=== PATIENT | male | born 1975 | race Caucasian/White ===

== ENCOUNTER 2017-10-23 03:57 | Emergency (ER) | payer SELFPAY ==
[2017-10-23] MEDS ORDERED: ASPIRIN 81 MG CHEWABLE TABLET ONE (04:23)
[2017-10-23] MEDS ORDERED: METOPROLOL TAR 50 MG TAB ONE (04:24)
[2017-10-23] MEDS ORDERED: ONDANSETRON 4 MG/2 ML VIAL ONE (04:25)
[2017-10-23] MEDS ORDERED: ENALAPRILAT 1.25 MG/ML VIAL IV ONE (04:25)
[2017-10-23] MEDS ORDERED: MORPHINE 4 MG/ML SYR ONE (04:25)
[2017-10-23 04:34] LABS: Absolute Lymphocytes (CBC) 1.7 K/uL (0.7-4.9); Absolute Monocytes 0.8 K/uL (0.1-1.3); Absolute Neutrophil 5.3 K/uL (1.8-8.0); Basophils % 0.7 % (0-1.3); Eosinophils % 1.2 % (0-4.4); Hematocrit 50.1 % (39.6-49.0); Lymphocytes % 21.6 % (15.3-44.8); MCH 31.2 pg (27.0-35.0); MCV 88.5 fL (80-100); MPV 8.1 fL (7.6-11.3); Monocytes % 10.1 % (3.3-12.3); RBC Red Blood Cell Count 5.66 M/uL (4.33-5.43)
[2017-10-23 04:43] LABS: Protime INR 0.95
[2017-10-23] MEDS ORDERED: KETOROLAC 30 MG/ML INJ ONE (05:14)
[2017-10-23 05:33] LABS: ALT/SGPT 46 U/L (12-78); AST/SGOT 46 U/L (15-37); Albumin 3.9 g/dL (3.4-5.0); Alkaline Phosphatase 42 U/L (45-117); BUN Blood Urea Nitrogen 7 mg/dL (7-18); Bicarbonate 28 mmol/L (21-32); Bilirubin Direct 0.1 mg/dL (0-0.2); Bilirubin Total 0.7 mg/dL (0.2-1.0); Glucose Level 94 mg/dL (74-106); Potassium 3.6 mmol/L (3.5-5.1); Sodium Level 140 mmol/L (136-145)
[2017-10-23 05:34] LABS: CKMB Creatine Kinase MB 3.8 ng/mL (0.3-3.6); Lipase 71 U/L (73-393); Magnesium 1.8 mg/dL (1.8-2.4); NT PRO-BNP 27 pg/mL (<125)
[2017-10-23 05:35] LABS: Alcohol Serum/Plasma 25 mg/dL (0-3)
[2017-10-23 05:36] LABS: Creatine Phosphokinase 1625 U/L (39-308)
[2017-10-23] MEDS ORDERED: NA CHLORIDE 0.9% 2,000 ML ONE (05:42)
--- NOTE | 2017-10-23 06:33 | EKG ---
Test Date: 2017-10-23 Test Time: 04:13:48 [employer] Of Sales Promotion: SANDY MEASUREMENT RESULTS: Intervals: Rate: 98 CA: 138 QRSD: 98 QT: 348 QTc: 444 [place]: P: 71 CA: 138 QRS: 66 T: 63 INTERPRETIVE STATEMENTS: Normal sinus rhythm Minimal voltage criteria for LVH, may be normal variant Borderline ECG Compared to ECG 12/15/2010 10:17:16 Left ventricular hypertrophy now present Electronically Signed On 10-23-17 06:32:21 CDT by Tye Zaragoza
[2017-10-23 07:14] LABS: CKMB Creatine Kinase MB 3.6 ng/mL (0.3-3.6)
--- NOTE | 2017-10-23 07:23 | EDPHYS ---
Physician Documentation [facility] Name: Ashish Clark Age: 42 yrs Sex: Male : 1975 Arrival Date: 10/23/2017 Time: 04:01 Bed 5 Private MD: Vinicio Patricia T ED Physician Jesus Alberto Villarreal HPI: 10/23 04:12 This 42 yrs old Male presents to ER via Unassigned with complaints of Chest helen Pain, Breathing Difficulty. 04:12 The patient or guardian reports chest pain that is located primarily in the substernal helen area. Onset: last night. The pain does not radiate. Associated signs and symptoms: The patient has no apparent associated signs or symptoms. The chest pain is described as sharp. Modifying factors: The symptoms are alleviated by nothing. the symptoms are aggravated by deep breath. Severity of pain: At its worst the pain was mild moderate in the emergency department the pain is unchanged. Historical: - Allergies: 04:13 No Known Allergies; fc - Home Meds: 04:13 None [Active]; fc - PMHx: 04:13 Hypertension; fc - PSHx: 04:13 None; fc - Immunization history:: Last tetanus immunization: unknown. - Social history:: Smoking status: Patient uses tobacco products, smokes one-half pack cigarettes per day, Patient/guardian denies using alcohol, street drugs. - Ebola Screening: : Patient negative for fever greater than or equal to 101.5 degrees Fahrenheit, and additional compatible Ebola Virus Disease symptoms Patient denies exposure to infectious person Patient denies travel to an Ebola-affected area in the 21 days before illness onset. - Family history:: not pertinent. ROS: 04:12 Constitutional: Negative for fever, chills, and weight loss, Eyes: Negative for injury, helen pain, redness, and discharge, ENT: Negative for injury, pain, and discharge, Neck: Negative for injury, pain, and swelling, Abdomen/GI: Negative for abdominal pain, nausea, vomiting, diarrhea, and constipation, Back: Negative for injury and pain, : Negative for injury, bleeding, discharge, and swelling, MS/Extremity: Negative for injury and deformity, Skin: Negative for injury, rash, and discoloration, Neuro: Negative for headache, weakness, numbness, tingling, and seizure, Psych: Negative for depression, anxiety, suicide ideation, homicidal ideation, and hallucinations, Allergy/Immunology: Negative for hives, rash, and allergies, Endocrine: Negative for neck swelling, polydipsia, polyuria, polyphagia, and marked weight changes, Hematologic/Lymphatic: Negative for swollen nodes, abnormal bleeding, and unusual bruising. 04:12 Cardiovascular: Positive for chest pain, of the chest. 04:12 Respiratory: Positive for shortness of breath. Exam: 04:12 Constitutional: This is a well developed, well nourished patient who is awake, alert, helen and in no acute distress. Head/Face: Normocephalic, atraumatic. Eyes: Pupils equal round and reactive to light, extra-ocular motions intact. Lids and lashes normal. Conjunctiva and sclera are non-icteric and not injected. Cornea within normal limits. Periorbital areas with no swelling, redness, or edema. ENT: Nares patent. No nasal discharge, no septal abnormalities noted. Tympanic membranes are normal and external auditory canals are clear. Oropharynx with no redness, swelling, or masses, exudates, or evidence of obstruction, uvula midline. Mucous membranes moist. Neck: Trachea midline, no thyromegaly or masses palpated, and no cervical lymphadenopathy. Supple, full range of motion without nuchal rigidity, or vertebral point tenderness. No Meningismus. Chest/axilla: Normal chest wall appearance and motion. Nontender with no deformity. No lesions are appreciated. Cardiovascular: Regular rate and rhythm with a normal S1 and S2. No gallops, murmurs, or rubs. Normal PMI, no JVD. No pulse deficits. Respiratory: Lungs have equal breath sounds bilaterally, clear to auscultation and percussion. No rales, rhonchi or wheezes noted. No increased work of breathing, no retractions or nasal flaring. Abdomen/GI: Soft, non-tender, with normal bowel sounds. No distension or tympany. No guarding or rebound. No evidence of tenderness throughout. Back: No spinal tenderness. No costovertebral tenderness. Full range of motion. Male : Normal genitalia with no discharge or lesions. Skin: Warm, dry with normal turgor. Normal color with no rashes, no lesions, and no evidence of cellulitis. MS/ Extremity: Pulses equal, no cyanosis. Neurovascular intact. Full, normal range of motion. Neuro: Awake and alert, GCS 15, oriented to person, place, time, and situation. Cranial nerves II-XII grossly intact. Motor strength 5/5 in all extremities. Sensory grossly intact. Cerebellar exam normal. Normal gait. Psych: Awake, alert, with orientation to person, place and time. Behavior, mood, and affect are within normal limits. 04:15 Musculoskeletal/extremity: DVT Exam: No signs of deep vein thrombosis. no pain, no helen swelling, no tenderness, negative Homans' sign noted on exam, no appreciated bluish discoloration, no erythema, no increased warmth. Vital Signs: 04:13 BP 149 / 116; Pulse 108; Resp 20; Temp 97.7(O); Pulse Ox 99% on R/A; Weight 88.45 kg fc (R); Height 6 ft. 1 in. (185.42 cm) (R); Pain 6/10; 04:31 BP 141 / 95; Pulse 103; Resp 16; Pulse Ox 99% on R/A; Pain 0/10; ak1 05:14 BP 148 / 92; Pulse 81; Resp 16; Temp 98.; Pulse Ox 97% on R/A; Pain 1/10; ak1 05:42 BP 131 / 89; Pulse 72; Resp 16; Pulse Ox 97% on R/A; ak1 07:41 BP 132 / 86; Pulse 70; Resp 15; Pulse Ox 100% on R/A; hb 04:13 Body Mass Index 25.73 (88.45 kg, 185.42 cm) MDM: 04:15 Data reviewed: vital signs, nurses notes, lab test result(s), EKG, radiologic studies, helen plain films. 04:16 Patient medically screened. [facility] 10/23 04:12 Order name: Basic Metabolic Panel; Complete Time: 05:37 [facility] 10/23 04:12 Order name: CBC with Diff; Complete Time: 04:51 [facility] 10/23 04:12 Order name: Ckmb; Complete Time: 05:37 [facility] 10/23 04:12 Order name: CPK; Complete Time: 05:37 [facility] 10/23 04:12 Order name: LFT's; Complete Time: 05:37 [facility] 10/23 04:12 Order name: Magnesium; Complete Time: 05:37 [facility] 10/23 04:12 Order name: NT PRO-BNP; Complete Time: 05:37 [facility] 10/23 04:12 Order name: PT-INR; Complete Time: 04:51 [facility] 10/23 04:12 Order name: Ptt, Activated; Complete Time: 04:51 [facility] 10/23 04:12 Order name: Troponin (emerg Dept Use Only); Complete Time: 05:35 [facility] 10/23 04:12 Order name: Lipase; Complete Time: 05:37 [facility] 10/23 04:12 Order name: ETOH Level; Complete Time: 05:37 [facility] 10/23 04:12 Order name: XRAY Chest (1 view) [facility] 10/23 04:36 Order name: D-Dimer; Complete Time: 04:51 [facility] 10/23 05:01 Order name: CT Chest For PE Angio [facility] 10/23 05:02 Order name: Ckmb [facility] 10/23 05:02 Order name: Creatine Phosphokinase; Complete Time: 07:18 [facility] 10/23 05:02 Order name: Troponin (emerg Dept Use Only); Complete Time: 06:41 [facility] 10/23 05:03 Order name: CKMB Creatine Kinase MB; Complete Time: 07:18 [facility] 10/23 04:12 Order name: EKG; Complete Time: 04:13 [facility] 10/23 04:12 Order name: Cardiac monitoring; Complete Time: 04:27 [facility] 10/23 04:12 Order name: EKG - Nurse/Tech; Complete Time: 04:27 [facility] 10/23 04:12 Order name: IV Saline Lock; Complete Time: 04:27 [facility] 10/23 04:12 Order name: Labs collected and sent; Complete Time: 04:27 [facility] 10/23 04:12 Order name: O2 Per Protocol; Complete Time: 04:28 [facility] 10/23 04:12 Order name: O2 Sat Monitoring; Complete Time: 04:28 [facility] 10/23 05:02 Order name: Repeat Cardiac Enzymes at: 6am; Complete Time: 06:09 [facility] Administered Medications: 04:29 Drug: Aspirin Chewable Tablet 324 mg Route: PO; ak1 05:06 Follow up: Response: No adverse reaction ak1 04:29 Drug: Lopressor (metoprolol TARTRATE) 50 mg Route: PO; ak1 05:06 Follow up: Response: No adverse reaction ak1 04:30 Drug: morphine 2 mg Route: IVP; Site: right antecubital; ak1 05:07 Follow up: Response: No adverse reaction ak1 04:30 Drug: Zofran 4 mg Route: IVP; Site: right antecubital; ak1 05:07 Follow up: Response: No adverse reaction ak1 04:30 Drug: Enalaprilat 2.5 mg Route: IV; Rate: per protocol; Site: right antecubital; ak1 05:13 Drug: TORadol 30 mg Route: IVP; Site: right antecubital; ak1 06:09 Follow up: Response: No adverse reaction ak1 06:09 Drug: NS 0.9% 1000 ml Route: IV; Rate: 1 bolus; Site: right antecubital; ak1 06:09 Drug: NS 0.9% 1000 ml Route: IV; Rate: 1 bolus; Site: right antecubital; ak1 06:45 Not Given (Patient Refused): morphine 2 mg IVP once ak1 07:29 Drug: Pepcid 20 mg Route: IVP; Site: right antecubital; Disposition: 10/23/17 07:22 Discharged to Home. Impression: Chest pain on breathing, Essential (primary) hypertension, Tobacco abuse counseling, Tobacco use, Rhabdomyolysis, Congenital hiatus hernia. - Condition is Stable. - Discharge Instructions: Hypertension, Smoking Cessation, Smoking Hazards, Hypertension, Mvpa-vp-[id number], Smoking Cessation, Tips For Success, Smoking, You Can Quit, Qypy-nk-Tpde, How to Take Your Blood Pressure, Gbdz-pv-Qcog, Aspirin and Your Heart, Managing Your High Blood Pressure. - Prescriptions for Tylenol- Codeine #3 300-30 mg Oral Tablet - take 2 tablets by ORAL route every 6 hours As needed; 24 tablet. Toprol XL 25 mg Oral Tablet - take 1 tablet by ORAL route once daily; 20 tablet. Lisinopril 20 mg Oral Tablet - take 1 tablet by ORAL route once daily; 20 tablet. Motrin IB 200 mg Oral Tablet - take 2 tablet by ORAL route every 6 hours As needed as needed with food; 20 tablet. - Medication Reconciliation Form, Thank You Letter, Antibiotic Education, Prescription Opioid Use, Work release form form. - Follow up: Vinicio Patricia; When: 1 - 2 days; Reason: Recheck today's complaints, Continuance of care, Re-evaluation by your physician. Follow up: Pollo Arita; When: 2 - 3 days; Reason: Recheck today's complaints, Re-evaluation by your physician. Follow up: Lul Mosher MD; When: 2 - 3 days; Reason: Recheck today's complaints, Re-evaluation by your physician. - Problem is new. - Symptoms have improved. Signatures: Dispatcher [employer] [facility] Jesus Alberto Villarreal MD MD cha Chretien, Felicia, RN RN Didi Rivera RN RN ak1 Josette Pino RN RN hb Corrections: (The following items were deleted from the chart) 04:35 04:15 D-DIMER+[id number].BRZ ordered. [facility] 08:28 07:22 10/23/2017 07:22 Discharged to Home. Impression: Chest pain on breathing; hb Essential (primary) hypertension; Tobacco abuse counseling; Tobacco use; Rhabdomyolysis; Congenital hiatus hernia. Condition is Stable. Discharge Instructions: Hypertension, Smoking Cessation, Smoking Hazards, Hypertension, Oiqu-gk-Eego, Smoking Cessation, Tips For Success, Smoking, You Can Quit, Uykw-rx-[id number], How to Take Your Blood Pressure, Nerx-he-Aksn, Aspirin and Your Heart, Managing Your High Blood Pressure. Prescriptions for Tylenol-Codeine #3 300-30 mg Oral Tablet - take 2 tablets by ORAL route every 6 hours As needed; 24 tablet, Toprol XL 25 mg Oral Tablet - take 1 tablet by ORAL route once daily; 20 tablet, Lisinopril 20 mg Oral Tablet - take 1 tablet by ORAL route once daily; 20 tablet, Motrin IB 200 mg Oral Tablet - take 2 tablet by ORAL route every 6 hours As needed as needed with food; 20 tablet. and Forms are Medication Reconciliation Form, Thank You Letter, Antibiotic Education, Prescription Opioid Use. Follow up: Vinicio Patricia; When: 1 - 2 days; Reason: Recheck today's complaints, Continuance of care, Re-evaluation by your physician. Follow up: Pollo Arita; When: 2 - 3 days; Reason: Recheck today's complaints, Re-evaluation by your physician. Follow up: Lul Mosher; When: 2 - 3 days; Reason: Recheck today's complaints, Re-evaluation by your physician. Problem is new. Symptoms have improved. helen
--- NOTE | 2017-10-23 07:23 | ER ---
Nurse's Notes [facility] Name: Ashish Clark Age: 42 yrs Sex: Male : 1975 Arrival Date: 10/23/2017 Time: 04:01 Bed 5 Private MD: Vinicio Patricia T Diagnosis: Chest pain on breathing;Essential (primary) hypertension;Tobacco abuse counseling;Tobacco use;Rhabdomyolysis;Congenital hiatus hernia Presentation: 10/23 04:11 Presenting complaint: Patient states: that he started having chest pain that was non fc radiating at 2100 last night. Then at 0200 he woke up with severe shortness of breath. Denies any nausea or vomiting. Pt states that he was taking Lotrel but has not had any in 2 days, and is suppose to start Lisinopril but has not. Transition of care: patient was not received from another setting of care. Onset of symptoms was October 22, 2017 at 21:00. Risk Assessment: Do you want to hurt yourself or someone else? Patient reports no desire to harm self or others. Initial Sepsis Screen: Does the patient meet any 2 criteria? HR > 90 bpm. Yes Does the patient have a suspected source of infection? No. Patient's initial sepsis screen is negative. Care prior to arrival: None. 04:11 Method Of Arrival: Ambulatory 04:11 Acuity: JOSELINE 3 Triage Assessment: 04:33 General: Appears in no apparent distress. Behavior is calm, cooperative. Pain: ak1 Complains of pain in chest. Historical: - Allergies: 04:13 No Known Allergies; fc - Home Meds: 04:13 None [Active]; fc - PMHx: 04:13 Hypertension; fc - PSHx: 04:13 None; fc - Immunization history:: Last tetanus immunization: unknown. - Social history:: Smoking status: Patient uses tobacco products, smokes one-half pack cigarettes per day, Patient/guardian denies using alcohol, street drugs. - Ebola Screening: : Patient negative for fever greater than or equal to 101.5 degrees Fahrenheit, and additional compatible Ebola Virus Disease symptoms Patient denies exposure to infectious person Patient denies travel to an Ebola-affected area in the 21 days before illness onset. - Family history:: not pertinent. Screenin:15 Abuse screen: Denies threats or abuse. Nutritional screening: No deficits noted. fc Tuberculosis screening: No symptoms or risk factors identified. Fall Risk None identified. Assessment: 04:31 Reassessment: Patient appears in no apparent distress at this time. Patient and/or ak1 family updated on plan of care and expected duration. Pain level reassessed. Patient is alert, oriented x 3, equal unlabored respirations, skin warm/dry/pink. General: Appears in no apparent distress. Pain: Complains of pain in chest Pain does not radiate. Pain began 209910/22/17. Neuro: No deficits noted. Cardiovascular: Reports chest pain, shortness of breath, since 209910/22/17 chest pain and 0300 SOB after waking up. Respiratory: Reports shortness of breath at rest since 0300. GI: No signs and/or symptoms were reported involving the gastrointestinal system. : No signs and/or symptoms were reported regarding the genitourinary system. EENT: No signs and/or symptoms were reported regarding the EENT system. Derm: No signs and/or symptoms reported regarding the dermatologic system. Musculoskeletal: No signs and/or symptoms reported regarding the musculoskeletal system. 06:36 Reassessment: Patient appears in no apparent distress at this time. Patient and/or ak1 family updated on plan of care and expected duration. Pain level reassessed. Patient is alert, oriented x 3, equal unlabored respirations, skin warm/dry/pink. 07:07 Reassessment: report given to Lazaro Aguirre RN and Josette Higgins RN. ak1 07:10 Reassessment: Patient appears in no apparent distress at this time. Patient and/or hb family updated on plan of care and expected duration. Pain level reassessed. Patient is alert, oriented x 3, equal unlabored respirations, skin warm/dry/pink. 07:40 Reassessment: Discharge ordered, IV fluids still infusing at this time. hb Vital Signs: 04:13 BP 149 / 116; Pulse 108; Resp 20; Temp 97.7(O); Pulse Ox 99% on R/A; Weight 88.45 kg fc (R); Height 6 ft. 1 in. (185.42 cm) (R); Pain 6/10; 04:31 BP 141 / 95; Pulse 103; Resp 16; Pulse Ox 99% on R/A; Pain 0/10; ak1 05:14 BP 148 / 92; Pulse 81; Resp 16; Temp 98.; Pulse Ox 97% on R/A; Pain 1/10; ak1 05:42 BP 131 / 89; Pulse 72; Resp 16; Pulse Ox 97% on R/A; ak1 07:41 BP 132 / 86; Pulse 70; Resp 15; Pulse Ox 100% on R/A; hb 04:13 Body Mass Index 25.73 (88.45 kg, 185.42 cm) ED Course: 04:01 Patient arrived in ED. al2 04:01 Vinicio Patricia MD is Private Physician. al2 04:10 Jesus Alberto Villarreal MD is Attending Physician. helen 04:13 Triage completed. fc 04:13 Arm band placed on Patient placed in an exam room, on a stretcher. fc 04:15 Patient has correct armband on for positive identification. Placed in gown. Bed in low fc position. Call light in reach. 04:15 EKG done, by ED staff, reviewed by Jesus Alberto Villarreal MD. cc 04:20 Initial lab(s) drawn, by nd, sent to lab. Inserted saline lock: 18 gauge in right cc antecubital area, using aseptic technique. Blood collected. 04:29 Didi Rivera, RN is Primary Nurse. ak1 04:33 director television on. Pulse ox on. NIBP on. ak1 04:33 Patient maintains SpO2 saturation greater than 95% on room air. ak1 04:55 X-ray completed. Portable x-ray completed in exam room. Patient tolerated procedure kw well. 04:56 XRAY Chest (1 view) In Process Unspecified. EDMS 05:17 No provider procedures requiring assistance completed. ak1 05:35 Notified ED physician of a critical lab result(s). cpk 1625. fc 06:[address] via wheelchair. kw1 06:28 CT Chest For PE Angio In Process Unspecified. EDMS 06:28 CT completed. Patient tolerated procedure well. Patient moved back from CT. kw1 07:21 Vinicio Patricia MD is Referral Physician. helen 07:21 Pollo Arita MD is Referral Physician. helen 07:21 Lul Mosher MD is Referral Physician. helen 08:26 IV discontinued, intact, bleeding controlled, No redness/swelling at site. Pressure hb dressing applied. Administered Medications: 04:29 Drug: Aspirin Chewable Tablet 324 mg Route: PO; ak1 05:06 Follow up: Response: No adverse reaction ak1 04:29 Drug: Lopressor (metoprolol TARTRATE) 50 mg Route: PO; ak1 05:06 Follow up: Response: No adverse reaction ak1 04:30 Drug: morphine 2 mg Route: IVP; Site: right antecubital; ak1 05:07 Follow up: Response: No adverse reaction ak1 04:30 Drug: Zofran 4 mg Route: IVP; Site: right antecubital; ak1 05:07 Follow up: Response: No adverse reaction ak1 04:30 Drug: Enalaprilat 2.5 mg Route: IV; Rate: per protocol; Site: right antecubital; ak1 05:13 Drug: TORadol 30 mg Route: IVP; Site: right antecubital; ak1 06:09 Follow up: Response: No adverse reaction ak1 06:09 Drug: NS 0.9% 1000 ml Route: IV; Rate: 1 bolus; Site: right antecubital; ak1 06:09 Drug: NS 0.9% 1000 ml Route: IV; Rate: 1 bolus; Site: right antecubital; ak1 06:45 Not Given (Patient Refused): morphine 2 mg IVP once ak1 07:29 Drug: Pepcid 20 mg Route: IVP; Site: right antecubital; hb Outcome: 07:22 Discharge ordered by . helen 08:27 Discharged to home ambulatory, with family. 08:27 Condition: stable 08:27 Discharge instructions given to patient, family, Instructed on discharge instructions, follow up and referral plans. medication usage, Demonstrated understanding of instructions, follow-up care, medications, Prescriptions given X 4. 08:28 Patient left the ED. Signatures: Dispatcher [employer] EDMS Jesus Alberto Villarreal MD MD cha Chretien, Felicia RN Delilah Calix [place] cc Krenek, Amber, RN RN [email or web address] Josette Pino RN RN Jodee Rose Angelica al2 Corrections: (The following items were deleted from the chart) 04:14 04:11 Presenting complaint: Patient states: that he started having chest pain that was fc non radiating at 2100 last night. Then at 0200 he woke up with severe shortness of breath. Denies any nausea or vomiting. fc
[2017-10-23] MEDS ORDERED: FAMOTIDINE 20 MG/2 ML VIAL IV ONE (07:30)
--- NOTE | 2017-10-23 08:41 | RAD REPORT ---
EXAM DESCRIPTION: CT - Chest For Pe Angio - 10/23/2017 8:16 am CLINICAL HISTORY: Chest pain since 9 p.m. last night COMPARISON: April 2017 TECHNIQUE: Dynamically enhanced axial 3 mm thick images of the chest were obtained during administra tion of <100> mL Isovue 370 IV contrast. Coronal and oblique reconstruction images were generated and reviewed. Exam utilizes a protocol for optimal evaluation of pulmonary arterial tree.A preliminary r eport was generated by virtual radiologic and reviewed prior to this dictation Maximum intensity projections 3D imaging was utilized All CT scans are performed using dose optimization technique as appropriate and may include automated exposure control or mA/KV adjustment according to patient size. FINDINGS: A pulmonary embolus is not seen. A thoracic aortic aneurysm is not noted. A pleural effusion is not seen. A pericardial effusion is not seen. A lung consolidation is not present. A calcified granuloma is present within the right lung IMPRESSION: Negative for a pulmonary embolism.
--- NOTE | 2017-10-23 08:42 | RAD REPORT ---
EXAM DESCRIPTION: Fermin Single View10/23/2017 4:56 am CLINICAL HISTORY: Chest pain COMPARISON: 2008 FINDINGS: The lungs appear clear of acute infiltrate. A calcified granuloma is present within the r ight lung. The lungs are hyperaerated. The heart is normal size IMPRESSION: No acute abnormalities displayed
== END 2017-10-23 08:28 | disposition home or self-care (01) ==
LOC: ER 03:57
DX: I10 Essential (primary) hypertension (principal); M62.82 Rhabdomyolysis; Q40.1 Congenital hiatus hernia; Z72.0 Tobacco use; Z71.6 Tobacco abuse counseling
CPT/HCPCS: 36415; 71045; 71275; 80048; 80076; 80320; 82550; 82553; 83690; 83735; 83880; 84484; 85025; 85379; 85610; 85730; 93005; 96374; 96375; 99285; J2405; J7030; Q9967

== ENCOUNTER 2020-04-29 20:44 | Inpatient (IN) | payer SELFPAY ==
--- NOTE | 2020-04-29 22:15 | ER ---
Nurse's Notes [facility] Name: Ashish Clark Age: 44 yrs Sex: Male : 1975 Arrival Date: 04/29/2020 Time: 20:47 Bed 13 Private MD: Vinicio Patricia T Diagnosis: Pneumonia due to other specified infectious organisms;Severe sepsis Presentation: 04/29 20:56 Chief complaint: Headache, nausea, body aches, fatigue, malaise, cough, chills, and hb subjective fever x 3 days. Coronavirus screen: chills, congestion, fatigue, headache, muscle pain, nausea. Ebola Screen: No symptoms or risks identified at this time. Initial Sepsis Screen: Does the patient meet any 2 criteria? HR > 90 bpm. No. Patient's initial sepsis screen is negative. Does the patient have a suspected source of infection? No. Patient's initial sepsis screen is negative. Risk Assessment: Do you want to hurt yourself or someone else? Patient reports no desire to harm self or others. Onset of symptoms was April 26, 2020. 20:56 Method Of Arrival: Wheelchair hb 20:56 Acuity: JOSELINE 3 hb Historical: - Allergies: 20:58 No Known Allergies; hb - Home Meds: 20:58 None [Active]; hb - PMHx: 20:58 Hypertension; hb - PSHx: 20:58 None; hb - Immunization history:: Adult Immunizations up to date. - Social history:: Smoking status: Patient reports the use of cigarette tobacco products, smokes one-half pack cigarettes per day. Screenin:55 Abuse screen: Denies threats or abuse. Denies injuries from another. Nutritional zb screening: No deficits noted. On. Nutritional screening:. Tuberculosis screening: No symptoms or risk factors identified. Fall Risk None identified. Assessment: 22:38 Reassessment: Annie [phone]. hb 23:00 General: Appears in no apparent distress. uncomfortable, Behavior is calm, cooperative, zb appropriate for age, Reports fever for 2-3 days, feeling ill for 2-3 days, fatigue for 2-3 days, body aches. Pain: Complains of pain in generalized, and chest pain Pain currently is 8 out of 10 on a pain scale. Quality of pain is described as aching, Pain began 2-3 days ago. Neuro: Level of Consciousness is awake, alert, obeys commands, Oriented to person, place, time, situation. Neuro: Sample Carrier are equal bilaterally Moves all extremities. Gait is steady, Speech is normal, Facial symmetry appears normal, Pupils are PERRLA. Neuro: Reports headache photophobia weakness. Cardiovascular: Patient's skin is warm and dry. Respiratory: Airway is patent Respiratory effort is even, unlabored, Respiratory pattern is regular, symmetrical. GI: : No signs and/or symptoms were reported regarding the genitourinary system. EENT: Reports loss of smell. . Derm: Skin is intact, is healthy with good turgor, Skin is dry, Skin is pale, Skin temperature is warm. Musculoskeletal: Circulation, motion, and sensation intact. Capillary refill < 3 seconds, in bilateral fingers. Range of motion: intact in all extremities. 04/30 00:00 Reassessment: Patient appears in no apparent distress at this time. Patient and/or zb family updated on plan of care and expected duration. Pain level reassessed. Patient is alert, oriented x 3, equal unlabored respirations, skin warm/dry/pink. pt sleeping at the moment. light dimmed. 00:12 Reassessment: attempted to call pt . mailbox full. zb 01:30 Reassessment: Patient appears in no apparent distress at this time. Patient is alert, rr5 oriented x 3, equal unlabored respirations, skin warm/dry/pink. resting eyes closed breathing spontaneously at room air. 02:30 Reassessment: Patient appears in no apparent distress at this time. Patient is alert, rr5 oriented x 3, equal unlabored respirations, skin warm/dry/pink. went to restroom ambulatory, no complaints made. Vital Signs: 04/29 20:56 BP 110 / 68; Pulse 103; Resp 18; Temp 99; Pulse Ox 99% ; Pain 8/10; hb 23:56 BP 104 / 70; Pulse 89; Resp 16; Pulse Ox 97% on R/A; zb 04/30 01:33 BP 121 / 75; Pulse 80; Resp 17; Pulse Ox 99% ; rr5 02:30 BP 126 / 85; Pulse 86; Resp 16; Temp 98.2; Pulse Ox 98% ; rr5 05:30 Weight 95.25 kg; Height 6 ft. 1 in. (185.42 cm); rr5 05:30 Body Mass Index 27.71 (95.25 kg, 185.42 cm) rr5 ED Course: 04/29 20:47 Patient arrived in ED. es 20:48 Vinicio Patricia MD is Private Physician. es 20:58 Triage completed. hb 20:58 Arm band placed on. hb 22:13 Patient's name was called from ER lobby. No response. hb 22:43 Jesus Alberto Rangel PA is PHCP. cp 22:43 Jesus Alberto Villarreal MD is Attending Physician. cp 22:59 Madeleine Romero RN is Primary Nurse. zb 23:30 Inserted saline lock: 20 gauge in right forearm, using aseptic technique. Blood ds4 collected. 23:35 XRAY Chest (1 view) In Process Unspecified. EDMS 23:52 Notified Nurse Practitioner and/or Physician Rn Invasive of a critical lab result(s), wbc sg 22.5. 23:55 Patient has correct armband on for positive identification. equipment monitor phototypesetting on. Pulse zb ox on. NIBP on. Door closed. Noise minimized. Warm blanket given. 04/30 00:14 Jagdeep Jack MD is Hospitalizing Provider. cp 01:33 No provider procedures requiring assistance completed. Patient admitted, IV remains in rr5 place. intact, No redness/swelling at site. 02:34 Urine collected: clean catch specimen, clear. rr5 Administered Medications: 04/29 23:51 Drug: Benadryl 12.5 mg Route: IVP; Site: right antecubital; zb 04/30 00:55 Follow up: Response: No adverse reaction rr5 04/29 23:51 Drug: Zofran (Ondansetron) 4 mg Route: IVP; Site: right forearm; zb 04/30 00:50 Follow up: Response: No adverse reaction rr5 04/29 23:52 Drug: NS 0.9% 1000 ml Route: IV; Rate: 1 bolus; Site: right antecubital; zb 04/30 01:00 Follow up: Response: No adverse reaction; IV Status: Completed infusion; IV Intake: rr5 1000ml 04/29 23:52 Drug: Reglan 10 mg Route: IVP; Site: right antecubital; zb 04/30 00:50 Follow up: Response: No adverse reaction rr5 01:15 Drug: Rocephin 1 grams Route: IV; Rate: calculated rate; Site: right forearm; rr5 01:35 Follow up: Response: No adverse reaction; IV Status: Completed infusion; IV Intake: [id number] 01:20 Drug: NS 0.9% 1000 ml Route: IV; Rate: 1 bolus; Site: right forearm; rr5 02:32 Follow up: Response: No adverse reaction; IV Status: Completed infusion; IV Intake: rr5 1000ml 01:31 Drug: Potassium Effervescent Tablet 50 mEq Route: PO; rr5 02:33 Follow up: Response: No adverse reaction rr5 01:32 Dru mg of (Zithromax 500 mg, NS 0.9% 250 ml) Route: IVPB; Infused Over: 1 hrs; rr5 Site: right forearm; 02:32 Follow up: Response: No adverse reaction; IV Status: Completed infusion; IV Intake: rr5 250ml Intake: 01:00 IV: 1000ml; Total: 1000ml. rr5 01:35 IV: 10ml; Total: 1010ml. rr5 02:32 IV: 250ml; Total: 1260ml. rr5 02:32 IV: 1000ml; Total: 2260ml. rr5 Outcome: 04/29 22:15 Patient left the ED. 04/30 00:15 Decision to Hospitalize by Provider. cp 02:30 Admitted to ER Hold. Please see [facility] for further documentation. rr5 02:30 Condition: stable 02:30 Instructed on the need for admit. 16:45 Patient left the ED. iw Signatures: Dispatcher [employer] EDLazaro Garnett RN YONY Angle Poole Irene, RN RN iw Vlad Larkin ds4 Jesus Alberto Rangel PA PA cp Josette Pion RN RN Jai Emerson RN RN rr5 Madeleine Romero RN RN zlisa Corrections: (The following items were deleted from the chart) 00:12 04/29 23:00 General: Appears in no apparent distress. uncomfortable, Behavior is calm, zb cooperative, appropriate for age, Reports fever for 2-3 days, feeling ill for 2-3 days, fatigue for 2-3 days, body aches zb 01/14 00:04/29 23:00 EENT: No signs and/or symptoms were reported regarding the EENT system. buzz gerber 04/30 99:04/29 23:00 Neuro: Reports headache buzz gerber
[2020-04-29 23:51] LABS: Absolute Lymphocytes (CBC) 1.9 K/uL (0.7-4.9); Basophils % 0.4 % (0-1.3); Hematocrit 37.7 % (39.6-49.0); Lymphocytes % 8.4 % (15.3-44.8); MPV 8.8 fL (7.6-11.3); RBC Red Blood Cell Count 4.31 M/uL (4.33-5.43)
[2020-04-29 23:52] LABS: Protime INR 1.18
[2020-04-30 00:10] LABS: ALT/SGPT 22 U/L (12-78); AST/SGOT 17 U/L (15-37); Albumin 2.7 g/dL (3.4-5.0); Alkaline Phosphatase 92 U/L (45-117); BUN Blood Urea Nitrogen 27 mg/dL (7-18); Bicarbonate 26 mmol/L (21-32); Bilirubin Direct 0.2 mg/dL (0-0.2); Bilirubin Total 0.5 mg/dL (0.2-1.0); Creatine Phosphokinase 34 U/L (39-308); Glucose Level 113 mg/dL (74-106); Magnesium 2.4 mg/dL (1.8-2.4); Potassium 3.2 mmol/L (3.5-5.1); Protein, Total 6.5 g/dL (6.4-8.2); Sodium Level 138 mmol/L (136-145); Troponin (Emerg Dept Use Only) < 0.02 ng/mL (0.0-0.045)
--- NOTE | 2020-04-30 00:15 | EDPHYS ---
Physician Documentation [facility] Name: Ashish Clark Age: 44 yrs Sex: Male : 1975 Arrival Date: 04/29/2020 Time: 20:47 Bed 13 Private MD: Vinicio Patricia T ED Physician Jesus Alberto Villarreal HPI: 04/29 23:12 This 44 yrs old Male presents to ER via Wheelchair with complaints of Back cp Pain, Headache, Vomiting, Shortness Of Breath. 23:12 The patient reports fever, not measured (subjective). cp 23:12 Onset: The symptoms/episode began/occurred 3 day(s) ago. Associated signs and symptoms: cp Pertinent positives: cough, headache, nausea, sore throat, body aches. Severity of symptoms: in the emergency department the symptoms are unchanged despite home interventions. Historical: - Allergies: 20:58 No Known Allergies; hb - Home Meds: 20:58 None [Active]; hb - PMHx: 20:58 Hypertension; hb - PSHx: 20:58 None; hb - Immunization history:: Adult Immunizations up to date. - Social history:: Smoking status: Patient reports the use of cigarette tobacco products, smokes one-half pack cigarettes per day. ROS: 23:20 Constitutional: Positive for body aches, malaise, Negative for fever. cp 23:20 Eyes: Negative for injury, pain, redness, and discharge. cp 23:20 ENT: Positive for sore throat, Negative for ear pain, difficulty swallowing, difficulty handling secretions. 23:20 Cardiovascular: Positive for chest pain, with cough, Negative for edema. 23:20 Respiratory: Positive for cough, with no reported sputum, Negative for shortness of breath, wheezing. 23:20 Abdomen/GI: Negative for abdominal pain, vomiting, diarrhea, constipation. 23:20 Back: Positive for pain at rest, of the low back area. 23:20 : Negative for urinary symptoms, flank pain. 23:20 Skin: Negative for rash. 23:20 Neuro: Positive for headache, Negative for altered mental status, weakness. 23:20 All other systems are negative. Exam: 23:25 Constitutional: The patient appears in no acute distress, alert, awake, cp non-diaphoretic, well developed, well nourished, obviously ill. 23:25 Head/Face: Normocephalic, atraumatic. cp 23:25 Eyes: Periorbital structures: appear normal, Pupils: equal, round, and reactive to light and accomodation, Extraocular movements: intact throughout, Conjunctiva: normal, no exudate, no injection, Sclera: no appreciated abnormality, Lids and lashes: appear normal, bilaterally. 23:25 ENT: External ear(s): are unremarkable, Nose: is normal, Mouth: Lips: dry, Oral mucosa: moist, Posterior pharynx: Airway: no evidence of obstruction, patent, swelling, is not appreciated, erythema, that is moderate, exudate, is not appreciated. 23:25 Neck: ROM/movement: is normal, is supple, no meningismus, no nuchal rigidity, Lymph nodes: no appreciated lymphadenopathy. 23:25 Chest/axilla: Inspection: normal, Palpation: crepitus, is not appreciated, tenderness, is not appreciated. 23:25 Cardiovascular: Rate: tachycardic, Rhythm: regular, Edema: is not appreciated, JVD: is not appreciated. 23:25 Respiratory: the patient does not display signs of respiratory distress, Respirations: labored breathing, is not present, shallow respirations, that is mild, Breath sounds: bronchial sounds, that are mild, are heard diffusely, rhonchi, are not appreciated, stridor, is not appreciated, wheezing: is not appreciated. 23:25 Abdomen/GI: Inspection: abdomen appears normal, Bowel sounds: active, all quadrants, Palpation: abdomen is soft and non-tender, in all quadrants, rebound tenderness, is not appreciated, voluntary guarding, is not appreciated, involuntary guarding, is not appreciated. 23:25 Back: pain, that is mild, of the low back area, CVA tenderness, is absent. 23:25 Skin: cellulitis, is not appreciated, no rash present. 23:25 Neuro: Orientation: to person, place \T\ time. Mentation: is normal. 23:45 ECG was reviewed by the Attending Physician. cp Vital Signs: 20:56 BP 110 / 68; Pulse 103; Resp 18; Temp 99; Pulse Ox 99% ; Pain 8/10; hb 23:56 BP 104 / 70; Pulse 89; Resp 16; Pulse Ox 97% on R/A; zb 04/30 01:33 BP 121 / 75; Pulse 80; Resp 17; Pulse Ox 99% ; rr5 02:30 BP 126 / 85; Pulse 86; Resp 16; Temp 98.2; Pulse Ox 98% ; rr5 05:30 Weight 95.25 kg; Height 6 ft. 1 in. (185.42 cm); rr5 05:30 Body Mass Index 27.71 (95.25 kg, 185.42 cm) rr5 MDM: 04/29 22:43 Patient medically screened. [facility] 23:30 Differential diagnosis: viral Infection, bacterial infection, bronchitis, pneumonia cp meningitis, sepsis. 04/30 00:15 Physician consultation: Taiwo FISHER was contacted at 00:15, regarding admission, to the medical/surgical unit. patient's condition. 01:15 Data reviewed: vital signs, nurses notes, lab test result(s), EKG, radiologic studies, cp plain films. 01:15 Test interpretation: by ED physician or midlevel provider: chest xray shows pneumonia cp left lung. 04/29 23:10 Order name: Basic Metabolic Panel; Complete Time: 00:12 cp 04/30 00:14 Interpretation: Normal except: K 3.2; GLUC 113; BUN 27; CRE 1.74; GFR 43; CA 8.3. cp 04/29 23:10 Order name: CBC with Diff; Complete Time: 01:07 cp 04/30 00:07 Interpretation: Normal except: WBC 22.1; RBC 4.31; HGB 12.7; HCT 37.7; SHARYN% 84.4; LYM% cp 8.4; NEUT A 18.7; MNA 1.4. 04/29 23:10 Order name: LFT's; Complete Time: 00:12 cp 04/29 23:10 Order name: Magnesium; Complete Time: 00:12 cp 04/29 23:10 Order name: PT-INR; Complete Time: 23:54 cp 04/29 23:10 Order name: Troponin (emerg Dept Use Only); Complete Time: 00:12 cp 04/29 23:10 Order name: Strep; Complete Time: 01:07 cp 04/29 23:10 Order name: CK; Complete Time: 00:12 cp 04/29 23:53 Order name: Manual Differential; Complete Time: 01:07 EDMS 04/30 01:07 Interpretation: Abnormal: BANDS [F] 12; LYM 8. cp 04/29 23:55 Order name: Procalcitonin; Complete Time: 01:59 cp 04/29 23:55 Order name: Lactate; Complete Time: 02:19 cp 04/29 23:55 Order name: Blood Culture Adult (2) cp 04/29 23:10 Order name: XRAY Chest (1 view); Complete Time: 13:42 cp 04/30 00:23 Order name: Urine Microscopic Only; Complete Time: 03:20 cp 04/30 01:03 Order name: Throat Culture EDMS 04/30 01:06 Order name: COVID-19/FLU A+B; Complete Time: 01:07 EDMS 04/30 02:32 Order name: Urine Dipstick--Ancillary (enter results) tt3 04/30 03:13 Order name: Urine Dipstick-Ancillary; Complete Time: 03:20 EDMS 04/30 06:04 Order name: Ur Protein; Complete Time: 13:42 EDMS 04/30 06:28 Order name: PTH Intact; Complete Time: 13:42 EDMS 04/30 07:25 Order name: Glucose, Ancillary Testing; Complete Time: 13:42 EDMS 04/30 11:19 Order name: US; Complete Time: 13:42 EDMS 04/30 11:43 Order name: Glucose, Ancillary Testing; Complete Time: 13:42 EDMS 04/30 14:34 Order name: Potassium EDMS 04/30 16:43 Order name: Glucose, Ancillary Testing EDMS 04/29 23:10 Order name: EKG; Complete Time: 23:12 cp 04/29 23:10 Order name: Cardiac monitoring; Complete Time: 23:46 cp 04/29 23:10 Order name: EKG - Nurse/Tech; Complete Time: 23:45 cp 04/29 23:10 Order name: IV Saline Lock; Complete Time: 23:35 cp 04/29 23:10 Order name: Labs collected and sent; Complete Time: 23:35 cp 04/29 23:10 Order name: O2 Per Protocol; Complete Time: 23:35 cp 04/29 23:10 Order name: O2 Sat Monitoring; Complete Time: 23:35 cp 04/29 23:10 Order name: Urine Dipstick-Ancillary (obtain specimen); Complete Time: 02:35 cp EC/13 23:45 Rate is 90 beats/min. Rhythm is regular. MD interval is normal. QRS interval is normal. cp QT interval is normal. T waves are Inverted in lead aVR. Interpreted by me. Reviewed by me. Administered Medications: 23:51 Drug: Benadryl 12.5 mg Route: IVP; Site: right antecubital; 04/30 00:55 Follow up: Response: No adverse reaction rr5 04/29 23:51 Drug: Zofran (Ondansetron) 4 mg Route: IVP; Site: right forearm; 04/30 00:50 Follow up: Response: No adverse reaction rr5 04/29 23:52 Drug: NS 0.9% 1000 ml Route: IV; Rate: 1 bolus; Site: right antecubital; 04/30 01:00 Follow up: Response: No adverse reaction; IV Status: Completed infusion; IV Intake: rr5 1000ml 04/29 23:52 Drug: Reglan 10 mg Route: IVP; Site: right antecubital; 04/30 00:50 Follow up: Response: No adverse reaction rr5 01:15 Drug: Rocephin 1 grams Route: IV; Rate: calculated rate; Site: right forearm; rr5 01:35 Follow up: Response: No adverse reaction; IV Status: Completed infusion; IV Intake: [id number] 01:20 Drug: NS 0.9% 1000 ml Route: IV; Rate: 1 bolus; Site: right forearm; rr5 02:32 Follow up: Response: No adverse reaction; IV Status: Completed infusion; IV Intake: rr5 1000ml 01:31 Drug: Potassium Effervescent Tablet 50 mEq Route: PO; rr5 02:33 Follow up: Response: No adverse reaction rr5 01:32 Dru mg of (Zithromax 500 mg, NS 0.9% 250 ml) Route: IVPB; Infused Over: 1 hrs; rr5 Site: right forearm; 02:32 Follow up: Response: No adverse reaction; IV Status: Completed infusion; IV Intake: rr5 250ml Disposition: 05/01 05:44 Co-signature as Attending Physician, Jesus Alberto ELLISON I agree with the assessment and helen plan of care. Disposition: 04/30/20 00:15 Hospitalization ordered by Jagdeep Jack for Inpatient Admission. Preliminary diagnosis are Pneumonia due to other specified infectious organisms, Severe sepsis. - Bed requested for Telemetry/MedSurg (Inpatient). - Status is Inpatient Admission. iw - Condition is Stable. - Problem is new. - Symptoms have improved. Signatures: Dispatcher [employer] [facility] Griselda Clifford RN Jesus Alberto Mercado MD MD cha Williams, Irene, RN RN iw Taiwo Mustafa PA PA jr8 Jesus Alberto Rangel PA PA cp Baxter, Heather, RN RN Jai Emerson RN RN rr5 Madeleine Romero RN RN zb Corrections: (The following items were deleted from the chart) 04/29 22:44 22:15 04/29/2020 22:15 Patient left the facility before being seen by provider. Reason hb stated they are leaving due to wait time. hb 04/30 00:07 00:06 Normal except: WBC 22.1; RBC 4.31; HGB 12.7; HCT 37.7; SHARYN% 84.4; LYM% 8.4; NEUT cp A 18.7. cp 00:14 04/29 23:11 CORONAVIRUS+MR.LAB.BRZ ordered. [facility] EDWV 04/30 00:14 00:13 Normal except: K 3.2; GLUC 113; BUN 27; CRE 1.74; GFR 43. cp cp 00:15 04/29 23:11 Influenza Screen (A \T\ B)+BA.LAB.BRZ ordered. [facility] 04/30 01:59 00:15 Hospitalization Ordered by Jagdeep Jack MD for Inpatient Admission. Preliminary jr8 diagnosis is Pneumonia due to other specified infectious organisms. Bed requested for Telemetry/MedSurg (Inpatient). Status is Inpatient Admission. Condition is Stable. Problem is new. Symptoms have improved. cp 02:35 01:59 04/30/2020 00:15 Hospitalization Ordered by Jagdeep Jack MD for Inpatient dw Admission. Preliminary diagnosis is Pneumonia due to other specified infectious organisms; Severe sepsis. Bed requested for Telemetry/MedSurg (Inpatient). Status is Inpatient Admission. Condition is Stable. Problem is new. Symptoms have improved. jr8 15:16 02:35 04/30/2020 00:15 Hospitalization Ordered by Jagdeep Jack MD for Inpatient dw Admission. Preliminary diagnosis is Pneumonia due to other specified infectious organisms; Severe sepsis. Bed requested for [facility] ER HOLD. Status is Inpatient Admission. Condition is Stable. Problem is new. Symptoms have improved. 16:45 15:16 04/30/2020 00:15 Hospitalization Ordered by Jagdeep Jack MD for Inpatient iw Admission. Preliminary diagnosis is Pneumonia due to other specified infectious organisms; Severe sepsis. Bed requested for Telemetry/MedSurg (Inpatient). Status is Inpatient Admission. Condition is Stable. Problem is new. Symptoms have improved.
[2020-04-30] MEDS ORDERED: AZITHROMYCIN 500 MG INJ IVPB ONE (01:04)
[2020-04-30] MEDS ORDERED: POTASSIUM 25 MEQ EFFERV TAB ONE (01:05)
[2020-04-30] MEDS ORDERED: CEFTRIAXONE/SWI 1gm 1 GM/10 ML SYR ONE (01:05)
[2020-04-30] MEDS ORDERED: NA CHLORIDE 0.9% 1,000 ML ONE ×4 (01:05→14:03)
[2020-04-30] MEDS ORDERED: NA CHLORIDE 0.9% 250 ML ONE (01:05)
[2020-04-30 01:06] LABS: SARS-COV-2 RT PCR NEGATIVE (NEGATIVE)
[2020-04-30 01:06] LABS: Blood Morphology Comment NOT SEEN (NOT SEEN); Platelet Estimate ADEQ
[2020-04-30 03:13] LABS: Urine Blood NEGATIVE (NEG); Urine Glucose NEGATIVE (NEG); Urine Protein NEGATIVE (NEG); Urine Specific Gravity 1.015 (1.005-1.030); Urine pH 6.5 (5.0-7.0)
[2020-04-30 03:13] LABS: Urine Bacteria <20 /HPF (NONE SEEN); Urine RBC <5 /HPF (NONE SEEN)
--- NOTE | 2020-04-30 03:17 | P.HP ---
Certification for Inpatient Patient admitted to: Inpatient With expected LOS: >2 Midnights Patient will require the following post-hospital care: None Practitioner: I am a practitioner with admitting privileges, knowledge of patient current condition, hospital course, and medical plan of care. Services: Services provided to patient in accordance with Admission requirements found in Title 42 Section 412.3 of the Code of Federal Regulations <Link Mustafa - Last Filed: 04/30/20 03:11> Patient History Date of Service: 04/30/20 Primary Care Provider: None Reason for admission: Severe Sepsis, Pneumonia History of Present Illness: This is a 44-year-old male with a history of hypertension but on no meds that presented to the emergency room today for a 3 day history of headache, nausea, body aches, fatigue, cough, chills, subjective fever that is not improved. Patient was worked up in the emergency room and found to have an elevated procalcitonin and white cell count of 22,000. Chest x-ray shows left base pneumonia. Patient was started on antibiotics and fluids in the emergency room. Hospitalist was consulted at that time where patient will be admitted to inpatient setting. Other notable labs that patient had was a potassium at 3.2 and a creatinine of 1.74 which patient denies history of renal insufficiency. Home medications list reviewed: Yes - Past Medical/Surgical History Has patient received pneumonia vaccine in the past: No Diabetic: No -: hypertension - Social History Smoking Status: Current every day smoker Counseled patient to stop smoking for: less than 10 minutes Smoking therapy provided: Yes Patient receptive to therapy: No Alcohol use: Yes CD- Drugs: No Caffeine use: Yes Place of Residence: Home <Link Mustafa - Last Filed: 04/30/20 03:11> Date of Service: 04/30/20 <Jagdeep Jack - Last Filed: 05/06/20 03:30> Allergies No Known Allergies Allergy (Unverified 05/07/16 13:28) Home Medications: Amox/Clavulanate [Augmentin 875-125 Tab] 875 mg PO BID #14 tab 05/02/20 Hydrocodone 10/APAP 325 [[place] 10/325*] 1 tab PO Q6H PRN #30 tab 05/02/20 predniSONE [Prednisone*] 20 mg PO BID #10 tab 05/02/20 Review of Systems General: Fever, Chills, Weakness, Malaise Eyes: Unremarkable ENT: Unremarkable Respiratory: Cough Cardiovascular: Unremarkable Gastrointestinal: Unremarkable Genitourinary: Unremarkable Musculoskeletal: Unremarkable Neurological: Unremarkable Lymphatics: Unremarkable <Link Mustafa - Last Filed: 04/30/20 03:11> 10-point ROS is otherwise unremarkable <Jagdeep Jack - Last Filed: 05/06/20 03:30> Physical Examination - Vital Signs Temperature: 99 F Blood Pressure: 110/68 Pulse: 103 Respirations: 18 Pulse Ox (%): 96 (RA) - Physical Exam General: Alert, In no apparent distress, Oriented x3, Cooperative HEENT: Normocephalic, PERRLA, Mucous membr. moist/pink, EOMI Neck: Supple, 2+ carotid pulse no bruit, JVD not distended, No Thyromegaly Respiratory: Normal air movement, Other (Mild decrease in air movement of the left lung base) Cardiovascular: No edema, Normal pulses, Regular rate/rhythm, Normal S1 S2, No gallops, No rubs, No murmurs Capillary refill: <2 Seconds Gastrointestinal: Normal bowel sounds, Soft and benign, Non-distended, No ascites, No tenderness, No masses, No rebound, No guarding Musculoskeletal: No clubbing, No swelling, No contractures, No erythema, No tenderness, No warmth Integumentary: No rashes, No breakdown, No significant lesion, No tenderness/swelling, No erythema, No warmth, No cyanosis Neurological: Normal speech, Normal strength at 5/5 x4 extr, Normal tone, Sensation intact, Cranial nerves 3-12 intact, Normal reflexes 2+, Normal affect Lymphatics: No axilla or inguinal lymphadenopathy - Studies Laboratory Data (last 24 hrs) 04/29/20 23:30: PT 13.9 H, INR 1.18 04/29/20 23:30: WBC 22.1 H*, Hgb 12.7 L, Hct 37.7 L, Plt Count 185 04/29/20 23:30: Sodium 138, Potassium 3.2 L, BUN 27 H, Creatinine 1.74 H, Glucose 113 H, Magnesium 2.4 D, Total Bilirubin 0.5, AST 17, ALT 22, Alkaline Phosphatase 92 Microbiology Data (last 24 hrs): 04/29/20 23:26 Throat Group A Streptococcus Rapid Screen - Final <Link Mustafa - Last Filed: 04/30/20 03:11> - Physical Exam General: Alert, In no apparent distress, Oriented x3 HEENT: Atraumatic, PERRLA, Mucous membr. moist/pink, EOMI, Sclerae nonicteric Neck: Supple, 2+ carotid pulse no bruit, No LAD, Without JVD or thyroid abnormality Respiratory: Clear to auscultation bilaterally, Normal air movement Cardiovascular: Regular rate/rhythm, Normal S1 S2 Gastrointestinal: Normal bowel sounds, No tenderness Musculoskeletal: No tenderness Integumentary: No rashes Neurological: Normal gait, Normal speech, Normal strength at 5/5 x4 extr, Normal tone, Normal affect Lymphatics: No axilla or inguinal lymphadenopathy - Studies Microbiology Data (last 24 hrs): 04/30/20 01:11 Blood - Blood Aerobic Blood Culture - Final No growth in 5 days. 04/30/20 01:11 Blood - Blood Anaerobic Blood Culture - Final No growth in 5 days. 04/30/20 00:45 Blood - Blood Aerobic Blood Culture - Final No growth in 5 days. 04/30/20 00:45 Blood - Blood Anaerobic Blood Culture - Final No growth in 5 days. <Jagdeep Jack - Last Filed: 05/06/20 03:30> Assessment and Plan - Problems (Diagnosis) (1) Severe sepsis Status: Acute (2) Pneumonia Status: Acute Qualifiers: Pneumonia type: due to unspecified organism Laterality: left Lung location: lower lobe of lung Qualified Code(s): J18.9 - Pneumonia, unspecified organism (3) Renal insufficiency Status: Acute (4) Hypokalemia Status: Acute - Plan 1. Patient will be monitored in inpatient setting for severe sepsis secondary to pneumonia of the left lung base 2. Patient will be started on broad-spectrum antibiotics for the pneumonia secondary severe sepsis and will continue on those. Blood cultures have been obtained and will wait if to see if anyone come back positive. We will continue to monitor lactate and procalcitonin levels as well. 3. Patient will be put on DVT prophylaxis 4. Patient will have potassium checked and replace as needed 5. Nephrology has been consulted for the renal insufficiency. Presumed new at this time as patient does not have a history renal insufficiency. We will continue to hydrate patient to see if this improves as it could be secondary to this sepsis and pneumonia 6. We will continue to monitor patient's respiratory status as well. Discharge Plan: Home Plan to discharge in: Greater than 2 days - Advance Directives Does patient have a Living Will: No Does patient have a Durable POA for Healthcare: No - Code Status/Comfort Care Code Status Assessed: Yes Code Status: Full Code Critical Care: No Time Spent Managing Pts Care (In Minutes): 80 <Link Mustafa - Last Filed: 04/30/20 03:11> - Problems (Diagnosis) (1) Left lower lobe pneumonia Status: Acute (2) Dental caries Status: Acute <Jagdeep Jack - Last Filed: 05/06/20 03:30>
--- NOTE | 2020-04-30 03:30 | P.INFCA ---
Sepsis Focused Assessment - Focused Assessment Complete? Sepsis Focused Assessment Completed?: Yes - Sepsis Screen Result Severe Sepsis: Positive - Evaluation Current stage of sepsis: Severe sepsis - Vital Signs Reviewed: Yes Temperature: 99 F Heart rate: 103 Blood Pressure: 110/68 Respiratory Rate: 18 O2 Sat by Pulse Oximetry: 96 (RA) - Examination Date exam was performed: 04/30/20 Time exam was performed: 01:30 Heart: Tachycardia Lungs: Other (Decreased breath sounds left base) Peripheral pulses: 3+ Normal Peripheral pulse location: Radial Capillary refill: <2 Seconds Skin examination: Normal turgor
[2020-04-30] MEDS: NA CHLORIDE 0.9% 1,000 ML IV SCH ×2 (05:04→13:49)
[2020-04-30] MEDS ORDERED: MORPHINE 2 MG/ML SYR IV PRN (05:04)
[2020-04-30] MEDS ORDERED: ACETAMINOPHEN 325 MG TABLET PO PRN (05:04)
[2020-04-30] MEDS ORDERED: ONDANSETRON 4 MG/2 ML VIAL IV PRN (05:04)
[2020-04-30 06:03] LABS: Urine Protein/Creatinine Ratio 0.24 ratio (<0.15)
[2020-04-30] MEDS: PIPER/TAZO/NS 3.375gm 3.375 GM/100 ML BAG IVPB SCH ×3 (08:14→18:22)
[2020-04-30] MEDS: ENOXAPARIN 40 MG/0.4 ML SQ SCH (08:14)
[2020-04-30] MEDS ORDERED: ENOXAPARIN 40 MG/0.4 ML SQ ONE (08:25)
[2020-04-30] MEDS ORDERED: PIPER/TAZO/NS 3.375gm 3.375 GM/100 ML BAG ONE (08:25)
--- NOTE | 2020-04-30 09:04 | RAD REPORT ---
EXAM DESCRIPTION: RAD - Chest Single View - 04/29/2020 11:35 pm CLINICAL HISTORY: COUGH Chest pain. COMPARISON: Chest Single View dated 10/23/2017; CHEST PA AND LAT 2 VIEW dated 11/03/2008; CHEST SINGLE VIEW dated 12/04/2007; CHEST SINGLE VIEW dated 10/21/2007 FINDINGS: Portable technique limits examination quality. The lungs are underinflated with moderate patchy opacity in the left lung base likely representing in filtrate/ pneumonia. The heart is normal in size. No displaced fractures. IMPRESSION: Moderate left lung base opacity likely represents infiltrate or pneumonia.
--- NOTE | 2020-04-30 11:18 | RAD REPORT ---
EXAM DESCRIPTION: US - Renal Ultrasound-Complete - 04/30/2020 11:10 am CLINICAL HISTORY: LUZMA Flank pain COMPARISON: No comparisons FINDINGS: Both kidneys are normal in size, shape and echotexture. The right kidney measures 12.7 x 6.4 x 5.2 cm. No hydronephrosis, focal mass or perinephric fluid. The left kidney measures 12.1 x 7.0 x 5.9 cm. No hydronephrosis, focal mass or perinephric fluid. The urinary bladder is incompletely distended without gross abnormality seen. IMPRESSION: Unremarkable renal sonogram.
--- NOTE | 2020-04-30 11:21 | EKG ---
Test Date: 2020-04-29 Test Time: 23:36:46 Marker Delivery: MAXWELL MEASUREMENT RESULTS: Intervals: Rate: 90 MD: 160 QRSD: 98 QT: 368 QTc: 450 Leslie: P: 71 MD: 160 QRS: 69 T: 72 INTERPRETIVE STATEMENTS: Sinus rhythm with premature atrial complexes Septal infarct, age undetermined Abnormal ECG Compared to ECG 10/23/2017 04:13:48 Atrial premature complex(es) now present Myocardial infarct finding now present Left ventricular hypertrophy no longer present Electronically Signed On 04-30-20 11:20:43 PUNCHBOARD STUFFER by Pollo Arita
[2020-04-30] MEDS ORDERED: NA CHLORIDE 0.9% 1,000 ML IV ONE (12:08)
[2020-04-30] MEDS ORDERED: MORPHINE 2 MG/ML SYR ONE (14:49)
--- NOTE | 2020-04-30 15:33 | CON ---
Date of Consultation: 04/30/2020 Reason For Consultation: Elevated BUN and creatinine. History Of Present Illness: This is a pleasant 44-year-old gentleman with significant past medical history of hypertension. The patient was in his regular state of health for the last few days, started having pain on the right flank and leg pain and started having shortness of breath. For that reason, the patient started using CBD powder and ibuprofen 2 tablets twice a day. His symptoms did not improve and started feeling weak, decreased urine output with urine more dark, for that reason reported to the hospital. Upon arrival to the hospital, found to have leukocytosis and pneumonia with elevation in BUN and creatinine. For that reason, we have been consulted. As I mentioned, the patient has been using CBD powder and using ibuprofen. No other insulting medications. Past Medical History: Hypertension. Allergies: NO KNOWN DRUGS ALLERGY. Home Medications: Including ibuprofen. Social History: Active smoker, active alcohol, active CBD user. Review of Systems: Head and Neck: No red eye. Has headache. GI: Has nausea. No vomiting. : No polyuria. Has decreased urine output. Has dark urine. PURCHASE ANALYST: Not applicable. Respiratory: Has shortness of breath. Has right flank pain. Cardiovascular: No chest pain. Endocrine: No polydipsia. Skin: No rash. Neuro: Generalized fatigue. Musculoskeletal: Generalized weakness. Physical Examination: General: When I saw the patient; patient lying in bed. Vital Signs: Blood pressure 132/83, pulse of 74, afebrile. Chest: Has crackles on the left base. Heart: S1, S2. Regular. Abdomen: Soft, nontender. Extremities: No edema. Neuro: Alert. No focality. Laboratory Data: WBC 22.1, H and H 12.7/37.7, platelet 185. Sodium 138, potassium 3.2, bicarb 26, BUN 27, creatinine 1.7, GFR of 43, calcium 8.3, magnesium 2.4. Reviewing the record last lab back in 2018, normal kidney function. Renal ultrasound, 12.7/12.1. Urinalysis negative for infection. PC ratio 0.2. Assessment And Plan: 1. Acute kidney injury secondary to prerenal superimposed with CBD/nonsteroidal use, nonoliguric, looked to me still on the dry side. I am going to go ahead and bolus the patient with another liter. Continue IV hydration and we will monitor the patient. I am going to send for workup. 2. Hypokalemia. We will supplement. We will send for magnesium. 3. Pneumonia. Continue current antibiotic dose appropriate. We will follow up with primary. Thank you for Mr. Maravilla for allowing us to participate in the care of your patient. Time spent discussing with the patient, [id number], using the translation, discussing with the staff and placing an order, discussing with over subspecialty and hospitalist 75 minutes. MILY Voice ID: [id number] Report ID: [id number] MTDD
[2020-04-30] MEDS ORDERED: LORazepam 2 MG/ML VIAL ONE (15:53)
[2020-04-30] MEDS ORDERED: LORazepam 2 MG/ML VIAL IV ONE (16:00)
[2020-04-30] MEDS: HYDROMORPHONE HCL 0.5 MG/0.5 ML INJ IV PRN (18:22)
[2020-04-30] MEDS: clonazePAM 0.5 MG TAB PO SCH (20:17)
[2020-05-01] MEDS: PIPER/TAZO/NS 3.375gm 3.375 GM/100 ML BAG IVPB SCH ×3 (00:01→15:56)
[2020-05-01] MEDS: HYDROMORPHONE HCL 0.5 MG/0.5 ML INJ IV PRN ×4 (00:01→13:53)
[2020-05-01] MEDS: NA CHLORIDE 0.9% 1,000 ML IV SCH ×2 (01:58→11:04)
[2020-05-01 04:32] LABS: Absolute Lymphocytes (CBC) 1.7 K/uL (0.7-4.9); Basophils % 1.1 % (0-1.3); Hematocrit 35.8 % (39.6-49.0); Lymphocytes % 17.7 % (15.3-44.8); MPV 8.8 fL (7.6-11.3); RBC Red Blood Cell Count 4.05 M/uL (4.33-5.43)
[2020-05-01 04:49] LABS: Magnesium 2.1 mg/dL (1.8-2.4)
[2020-05-01 05:11] LABS: Albumin 3.1 g/dL (3.4-5.0); Ferritin 1008.1 ng/mL (26-388); Folic Acid, (Folate) 9.9 ng/mL (3.1-17.5); Magnesium 2.1 mg/dL (1.8-2.4); Potassium 4.2 mmol/L (3.5-5.1); Uric Acid 4.1 mg/dL (3.5-7.2)
[2020-05-01 05:12] VITALS: BMI 28.4
[2020-05-01 05:12] LABS: Thyroid Stimulating Hormone 10.5 uIU/mL (0.360-3.740)
[2020-05-01] MEDS: ENOXAPARIN 40 MG/0.4 ML SQ SCH (08:10)
[2020-05-01] MEDS: clonazePAM 0.5 MG TAB PO SCH ×3 (08:11→21:44)
[2020-05-01 10:28] LABS: Rheumatoid Factor NEG (NEG)
--- NOTE | 2020-05-01 11:24 | RAD REPORT ---
EXAM DESCRIPTION: [place] Single View05/01/2020 11:13 am CLINICAL HISTORY: Shortness of breath COMPARISON: April 29 FINDINGS: Mild improvement in the left lung opacities. Right lung appears clear. Heart is normal size IMPRESSION: Mild improvement in left lung opacities probably pneumonia
--- NOTE | 2020-05-01 12:45 | RAD REPORT ---
EXAM DESCRIPTION: US - Scrotum Testicles - 05/01/2020 11:00 am CLINICAL HISTORY: Testicular pain and swelling COMPARISON: None FINDINGS: Right testicle measures 4.8 x 2.2 x 3.5 centimeters. Echotexture is homogeneous. Normal bl ood flow Left testicle measures 4.8 x 2.6 x 3.2 centimeters. Echotexture is homogeneous. Normal blood flow The epididymides are normal in size and echotexture. Normal blood flow is seen. IMPRESSION: Unremarkable exam
--- NOTE | 2020-05-01 13:25 | P.PN ---
Subjective Date of Service: 05/01/20 Primary Care Provider: None Chief Complaint: Severe Sepsis, Pneumonia Subjective pt presented with SOB, have Lin and leuckocytosis with bandemia today feels better cr normalized will dc iVF can be discharged from nephrology point of view Physical exam general: AAOX3, NAD Neck; Supple, No elevated JVD hear: RRR, normal S1,2 no murmur or rub Chest: CTAB, no rlaes or wheezes Abdomen: Soft , Nt Extremities trace edema, Assessment And Plan: 1. Acute kidney injury due to prerenal superimposed +/- NSAI D resolved will dc IVF Hypokalemia due to poor oral intake resolved Pneumonia. Continue current antibiotic dose appropriate. total time spent time spent 30min Physical Examination - Vital Signs Temperature: 98.4 F Blood Pressure: 139/79 Pulse: 78 Respirations: 18 Pulse Ox (%): 94
--- NOTE | 2020-05-01 13:36 | ECHO ---
HEIGHT: 6 ft 1 in WEIGHT: 215 lb 11.2 oz DATE OF STUDY: 05/01/[address]: Jagdeep Jack MD 2-DIMENSIONAL: YES M.MODE: YES DOPPLER: YES COLOR FLOW: YES TDS: PORTABLE: DEFINITY: BUBBLE STUDY: DIAGNOSIS: DYSPNEA, TOOTH ABSCESS CARDIAC HISTORY: CATHERIZATION: NO SURGERY: NO PROSTHETIC VALVE: NO PACEMAKER: NO MEASUREMENTS (cm) DIASTOLIC (NORMALS) SYSTOLIC (NORMALS) IVSd 1.0 (0.6-1.2) LA Diam 3.2 (1.9-4.0) LVEF 50% LVIDd 4.8 (3.5-5.7) LVIDs 3.6 (2.0-3.5) %FS 26% LVPWd 1.1 (0.6-1.2) Ao Diam 3.2 (2.0-3.7) 2 DIMENSIONAL ASSESSMENT: RIGHT ATRIUM: LEFT ATRIUM: RIGHT VENTRICLE: LEFT VENTRICLE: TRICUSPID VALVE: MITRAL VALVE: PULMONIC VALVE: AORTIC VALVE: PERICARDIAL EFFUSION: AORTIC ROOT: LEFT VENTRICULAR WALL MOTION: DOPPLER/COLOR FLOW: COMMENTS: NORMAL 2-DIMENSIONAL ECHOCARDIOGRAM WITH DOPPLER. NO WALL MOTION ABNORMALITY. NO VEGETATION. TECHNOLOGIST: JASMIN MCCORD
[2020-05-01] MEDS ORDERED: HYDROCORTISONE SUC 100 MG INJ IV ONE (15:00)
[2020-05-01] MEDS ORDERED: HYDROCODONE/APAP 10/325 TAB PO ONE (17:00)
[2020-05-01] MEDS ORDERED: HYDROCODONE/APAP 10/325 TAB PO PRN (20:00)
[2020-05-01] MEDS: HYDROCORTISONE SUC 100 MG INJ IV SCH (21:44)
[2020-05-02] MEDS: PIPER/TAZO/NS 3.375gm 3.375 GM/100 ML BAG IVPB SCH ×2 (00:49→09:00)
[2020-05-02 02:48] VITALS: O2SAT 97
[2020-05-02 05:03] VITALS: BP 124/69; TEMP 97
[2020-05-02 05:27] LABS: Absolute Lymphocytes (CBC) 1.8 K/uL (0.7-4.9); Basophils % 0.8 % (0-1.3); Hematocrit 39.4 % (39.6-49.0); Lymphocytes % 15.1 % (15.3-44.8); MPV 8.4 fL (7.6-11.3); RBC Red Blood Cell Count 4.54 M/uL (4.33-5.43)
[2020-05-02 05:39] LABS: Albumin 2.8 g/dL (3.4-5.0); Magnesium 2.2 mg/dL (1.8-2.4); Phosphorus 5.7 mg/dL (2.5-4.9)
--- NOTE | 2020-05-02 08:52 | P.PN ---
Subjective Date of Service: 05/01/20 Patient feeling better. Pain is much improved. Echocardiogram and scrotal ultrasound are pending. Repeat chest x-ray shows some improvement of the left lower lobe pneumonia. Anticipate discharge home in the next 24 hr. Review of Systems 10-point ROS is otherwise unremarkable Physical Examination - Vital Signs Temperature: 97.0 F Blood Pressure: 124/69 Pulse: 67 Respirations: 18 Pulse Ox (%): 97 - Physical Exam General: Alert, In no apparent distress, Oriented x3 Respiratory: Diminished, Rhonchi/gurgles Cardiovascular: Regular rate/rhythm, Normal S1 S2, No murmurs Gastrointestinal: Normal bowel sounds, Soft and benign, Non-distended, No tenderness Musculoskeletal: No clubbing, No swelling, No tenderness Neurological: Normal speech, Normal tone, Normal affect Lymphatics: No axilla or inguinal lymphadenopathy - Studies Microbiology Data (last 24 hrs): 04/29/20 23:26 Throat Culture & Sensitivity - Final NORMAL UPPER RESPIRATORY SHARLENE GROWN. Medications List Reviewed: Yes Assessment & Plan - Problems (Diagnosis) (1) Left lower lobe pneumonia Current Visit: Yes Status: Acute (2) Dental caries Current Visit: Yes Status: Acute - Plan 1. Continue with IV antibiotics 2. Awaiting sputum and blood culture 3. Repeat chest x-ray 4. Echocardiogram and scrotal ultrasound pending 5. Outpatient dental follow-up 6. Continue with nebs as needed 7. O2 per protocol 8. Continue with gentle hydration 9. Repeat labs including CBC and renal function in a.m. 10. GI and DVT prophylaxis Discharge Plan: Home Plan to discharge in: 24 Hours - Advance Directives Does patient have a Living Will: No Does patient have a Durable POA for Healthcare: No - Code Status/Comfort Care Code Status: Full Code Critical Care: No Time Spent Managing PTS Care (In Minutes): 35
[2020-05-02] MEDS: ENOXAPARIN 40 MG/0.4 ML SQ SCH (09:00)
[2020-05-02] MEDS: clonazePAM 0.5 MG TAB PO SCH (09:00)
[2020-05-02] MEDS: HYDROCORTISONE SUC 100 MG INJ IV SCH (09:00)
--- NOTE | 2020-05-02 11:59 | PN ---
Date of Progress Note: 05/02/2020 Subjective: The patient was admitted with acute kidney injury secondary to nonsteroidal use, CBD. The patient after hydration had recovered very well. Objective: Vital Signs: Blood pressure 124/69, pulse of 68, afebrile. The patient had good urine output. Chest: Clear to auscultation. Heart: S1 and S2 regular. Abdomen: Soft, nontender. Extremities: No edema. Neuro: Alert. No focal. Laboratory Data: WBC 11.7, H and H 13/39.4, platelet 273. Sodium 137, potassium 4, bicarb 27, BUN 15, creatinine 0.9, calcium 9.2, phosphorus 5.7, magnesium 2.2. Iron saturation 29, ferritin 1000. PC ratio 0.2. Current Medications: The patient on it includes Zosyn, Lovenox, Zofran, hydrocortisone 50 b.i.d., IV fluid. Assessment/plan: 1. Acute kidney injury, normal size kidney, non-proteinuric secondary to nonsteroidal use, recovered, resolved. I am going to discontinue IV fluid. The patient cleared from the renal standpoint for discharge planning. 2. Hypokalemia secondary to poor intake, dehydration, recovered, resolved. 3. Hypertension, controlled. Continue current treatment. 4. Colitis. Consider down grade antibiotic. The patient cleared from the renal standpoint for discharge planning. time spend discussing with the patient face to face , placing order , discusse with the patient and other produce team lead including hospitalist 45 min. MILY Voice ID: [id number] Report ID: [id number] HEBER
--- NOTE | 2020-05-02 13:20 | P.DS ---
Discharge Date: 05/02/20 Primary Care Provider: Liliane Disposition: ROUTINE DISCHARGE Discharge Condition: GOOD Reason for Admission: Severe Sepsis, Pneumonia - Problems (1) Left lower lobe pneumonia Status: Acute (2) Dental caries Status: Acute Brief History of Present Illness: Patient is a 44-year-old gentleman who came into the hospital with shortness of breath. Patient had been ill for the last few days. Patient was congested and bringing up greenish discolored sputum. Patient came into the hospital for further evaluation. In the emergency room patient was found to have an elevated Inflammatory markers. Patient appeared to have a pneumonia. Patient's COVID-19 Tests came back negative. Patient admitted for bacterial pneumonia with elevated procalcitonin level. Hospital Course: Patient has done well with IV antibiotic therapy. Patient will be arranged for home antibiotic therapy as well. At this time patient is stable for discharge home. Vital Signs/Physical Exam: Temp Pulse Resp BP Pulse Ox 97.0 F 67 18 124/69 97 05/02/20 08:52 05/02/20 08:52 05/02/20 08:52 05/02/20 08:52 05/02/20 08:52 General: Alert, In no apparent distress, Oriented x3 Laboratory Data at Discharge: WBC 11.7 K/uL (4.3-10.9) H D 05/02/20 05:05 Hgb 13.2 g/dL (13.6-17.9) L 05/02/20 05:05 Hct 39.4 % (39.6-49.0) L 05/02/20 05:05 Plt Count 273 K/uL (152-406) D 05/02/20 05:05 PT 13.9 SECONDS (9.5-12.5) H 04/29/20 23:30 INR 1.18 04/29/20 23:30 Sodium 137 mmol/L (136-145) 05/02/20 05:05 Potassium 4.0 mmol/L (3.5-5.1) 05/02/20 05:05 BUN 15 mg/dL (7-18) 05/02/20 05:05 Creatinine 0.93 mg/dL (0.55-1.3) 05/02/20 05:05 Glucose 192 mg/dL (74-106) H 05/02/20 05:05 Uric Acid 4.1 mg/dL (3.5-7.2) 05/01/20 04:07 Phosphorus 5.7 mg/dL (2.5-4.9) H 05/02/20 05:05 Magnesium 2.2 mg/dL (1.8-2.4) 05/02/20 05:05 Total Bilirubin 0.5 mg/dL (0.2-1.0) 04/29/20 23:30 AST 17 U/L (15-37) 04/29/20 23:30 ALT 22 U/L (12-78) 04/29/20 23:30 Alkaline Phosphatase 92 U/L (45-117) 04/29/20 23:30 Home Medications: Amox/Clavulanate [Augmentin 875-125 Tab] 875 mg PO BID #14 tab 05/02/20 Hydrocodone 10/APAP 325 [[place] 10/325*] 1 tab PO Q6H PRN #30 tab 05/02/20 predniSONE [Prednisone*] 20 mg PO BID #10 tab 05/02/20 New Medications: Amox/Clavulanate [Augmentin 875-125 Tab] 875 mg PO BID #14 tab Hydrocodone 10/APAP 325 [[place] 10/325*] 1 tab PO Q6H PRN #30 tab PRN Reason: Pain Scale 5-7 (Moderate) predniSONE [Prednisone*] 20 mg PO BID #10 tab Patient Discharge Instructions: OK TO DC IV AND DC HOME. FOLLOW-UP WITH PRIMARY CARE PROVIDER IN 1-2 WEEKS. Follow-up with Nephrology in 4-6 weeks. FOLLOW-UP WITH Dentist IN 1-2 WEEKS. RETURN TO THE ER IF symptoms worsen. CALL or TEXT DR. DENISE AT [phone] IF ANY QUESTIONS REGARDING HOSPITAL STAY. PLEASE CALL THE FLOOR AT [phone] IF ANY MEDICATION OR NURSING QUESTIONS. Diet: Regular Activity: Fall precautions Followup: Kenzie Crabtree MD [ACTIVE - CAN ADMIT] - (Follow up in four weeks. Call to make an appointment. ) Vinicio Patricia MD [Primary Care Provider] - Time spent managing pt's care (in minutes): 35
[2020-05-03 17:05] LABS: HIV AG/AB 4TH GEN Non-reactive (Non-reactive)
[2020-05-04 03:45] LABS: Hepatitis C Virus RNA (PCR)log <1.18 log IU/mL
[2020-05-05 21:11] LABS: Albumin, (SPE) 2.9 g/dL (3.8-4.8); Alpha-1-Globulins 0.5 g/dL (0.2-0.3); Alpha-2-Globulins 0.7 g/dL (0.5-0.9); Gamma Globulins 0.8 g/dL (0.8-1.7); INTERPRETATION REPORT
[2020-05-06 06:14] LABS: HBsAG Nonreactive (Nonreactive)
[2020-05-06 16:28] LABS: Vitamin D 1,25-Dihydroxy Total 79 pg/mL (18-72); Vitamin D,1,25-OH2, D2 <8 pg/mL
== END 2020-05-02 11:37 | disposition home or self-care (01) | DRG 871 ==
LOC: ER 20:44 → ERHOLD 04-30 02:06 → 2ND 04-30 15:49
PROVIDERS: ADMIT Hospitalist; ATTEND Hospitalist
DX: A41.9 Sepsis, unspecified organism (principal); J15.9 Unspecified bacterial pneumonia; N17.9 Acute kidney failure, unspecified; R65.20 Severe sepsis without septic shock; I10 Essential (primary) hypertension; F17.210 Nicotine dependence, cigarettes, uncomplicated; E87.6 Hypokalemia; K02.9 Dental caries, unspecified; E86.0 Dehydration; K52.9 Noninfective gastroenteritis and colitis, unspecified; Z79.899 Other long term (current) drug therapy; Z79.52 Long term (current) use of systemic steroids; Z20.822 Contact with and (suspected) exposure to COVID-19
CPT/HCPCS: 0240U; 36415; 71045; 76770; 76870; 80048; 80069; 80076; 81003; 81015; 82550; 82570; 82607; 82652; 82728; 82746; 82947; 83520; 83540; 83605; 83735; 83880; 83970; 84132; 84145; 84156; 84165; 84439; 84443; 84466; 84484; 84550; 85025; 85044; 85302; 85610; 86021; 86038; 86160; 86225; 86317; 86430; 86704; 86706; 87040; 87070; 87081; 87340; 87389; 87522; 93005; 93306; 99285; J0456; J0696; J1170; J1650; J1720; J2270; J2543; J7030; J7050

== ENCOUNTER 2020-06-27 01:06 | Emergency (ER) | payer SELFPAY ==
[2020-06-27 02:04] LABS: Urine Blood NEGATIVE (NEG); Urine Glucose NEGATIVE (NEG); Urine Protein NEGATIVE (NEG); Urine pH 6.5 (5.0-7.0)
[2020-06-27 02:10] LABS: Absolute Lymphocytes (CBC) 2.6 K/uL (0.7-4.9); Basophils % 0.9 % (0-1.3); Hematocrit 43.8 % (39.6-49.0); Lymphocytes % 26.6 % (15.3-44.8); MPV 8.5 fL (7.6-11.3); RBC Red Blood Cell Count 4.95 M/uL (4.33-5.43)
[2020-06-27] MEDS ORDERED: ONDANSETRON 4 MG/2 ML VIAL ONE (02:19)
[2020-06-27] MEDS ORDERED: MORPHINE 4 MG/ML SYR ONE (02:19)
[2020-06-27 02:22] LABS: Urine Bacteria <20 /HPF (NONE SEEN); Urine RBC NONE SEEN /HPF (NONE SEEN)
[2020-06-27 02:24] LABS: Albumin 4.2 g/dL (3.4-5.0); Bilirubin Direct 0.2 mg/dL (0-0.2); Bilirubin Total 0.7 mg/dL (0.2-1.0); Potassium 3.7 mmol/L (3.5-5.1); Protein, Total 7.9 g/dL (6.4-8.2)
--- NOTE | 2020-06-27 04:28 | ER ---
Nurse's Notes [facility] Name: Ashish Clark Age: 45 yrs Sex: Male : 1975 Arrival Date: 06/27/2020 Time: 01:07 Bed 20 Private MD: Diagnosis: Flank Pain Presentation: 06/27 01:35 Chief complaint: Patient states: right flank pain for 4 days, worse today, recent sf admission for pnu and kidney problems. Also reports right knee swelling and pain. Coronavirus screen: Client denies travel out of the [place] in the last 14 days. chills, Client presents with at least one sign or symptom that may indicate coronavirus-19. Standard/surgical mask placed on the client. Provider contacted for isolation considerations. The client reports previous COVID testing was negative. Ebola Screen: Patient negative for fever greater than or equal to 101.5 degrees Fahrenheit, and additional compatible Ebola Virus Disease symptoms Patient denies exposure to infectious person. Patient denies travel to an Ebola-affected area in the 21 days before illness onset. No symptoms or risks identified at this time. Initial Sepsis Screen: Does the patient meet any 2 criteria? HR > 90 bpm. No. Patient's initial sepsis screen is negative. Does the patient have a suspected source of infection? No. Patient's initial sepsis screen is negative. Risk Assessment: Do you want to hurt yourself or someone else? Patient reports no desire to harm self or others. Onset of symptoms was June 22, 2020. 01:35 Method Of Arrival: Wheelchair sf 01:35 Acuity: JOSELINE 3 sf Triage Assessment: 01:39 General: Appears in no apparent distress. comfortable, Behavior is calm, cooperative, sf appropriate for age. Pain: Complains of pain in right flank and right knee Pain currently is 7 out of 10 on a pain scale. EENT: No signs and/or symptoms were reported regarding the EENT system. Neuro: No deficits noted. Level of Consciousness is awake, alert, Oriented to person, place, time, situation. Cardiovascular: No deficits noted. Denies chest pain, palpitations, shortness of breath, Patient's skin is warm and dry. Respiratory: No deficits noted. Airway is patent Respiratory effort is even, unlabored, Respiratory pattern is regular, symmetrical, Denies cough, shortness of breath labored breathing. GI: No signs and/or symptoms were reported involving the gastrointestinal system. : No signs and/or symptoms were reported regarding the genitourinary system. Musculoskeletal: Circulation, motion, and sensation intact. Range of motion: intact in all extremities, Reports pain in right knee. Historical: - Allergies: 01:39 No Known Allergies; sf - Home Meds: 01:39 lisinopril 20 mg Oral tab 1 tab once daily [Active]; sf - PMHx: 01:39 Hypertension; sf - PSHx: 01:39 None; sf - Immunization history:: Adult Immunizations up to date. - Social history:: Smoking status: Patient reports the use of cigarette tobacco products, smokes one-half pack cigarettes per day, Patient uses alcohol, weekly. Patient/guardian denies using street drugs, IV drugs. - Family history:: not pertinent. - Hospitalizations: : No recent hospitalization is reported. Screenin:42 Abuse screen: Denies threats or abuse. Denies injuries from another. Nutritional sf screening: No deficits noted. Tuberculosis screening: No symptoms or risk factors identified. Never had TB. Possible symptoms: None Risk factors: None. Fall Risk None identified. No fall in past 12 months (0 pts). No secondary diagnosis (0 pts). IV access (20 points). Ambulatory Aid- None/Bed Rest/Nurse Assist (0 pts). Gait- Normal/Bed Rest/Wheelchair (0 pts) Mental Status- Oriented to own ability (0 pts). Total Renteria Fall Scale indicates No Risk (0-24 pts). Assessment: 01:42 Reassessment: SEE TRIAGE NOTE. 02:33 Reassessment: Patient appears in no apparent distress at this time. Patient and/or sf family updated on plan of care and expected duration. Pain level reassessed. Patient is alert, oriented x 3, equal unlabored respirations, skin warm/dry/pink. Patient states feeling better. Patient states symptoms have improved. 03:59 Reassessment: Patient appears in no apparent distress at this time. Patient and/or sf family updated on plan of care and expected duration. Pain level reassessed. Patient is alert, oriented x 3, equal unlabored respirations, skin warm/dry/pink. Patient states feeling better. Patient states symptoms have improved. Vital Signs: 01:35 BP 152 / 109; Pulse 94; Resp 20; Temp 97.7; Pulse Ox 96% ; Weight 99.79 kg; Height 6 sf ft. 1 in. (185.42 cm); Pain 7/10; 02:00 BP 129 / 91; Pulse 92; Resp 20; Pulse Ox 100% ; sf 02:32 Pain 3/10; sf 02:34 BP 142 / 69; Pulse 89; Resp 16; Pulse Ox 99% ; sf 03:00 BP 137 / 94; Pulse 92; Resp 16; Pulse Ox 99% ; sf 03:30 BP 137 / 100; Pulse 89; Resp 16; Pulse Ox 100% ; sf 03:59 Pain 4/10; sf 04:51 BP 138 / 94; Pulse 90; Resp 16; Pulse Ox 100% ; sf 01:35 Body Mass Index 29.03 (99.79 kg, 185.42 cm) sf ED Course: 01:07 Patient arrived in ED. cl3 01:25 Juan Carlos Amaro MD is Attending Physician. rn 01:27 Lazaro Mckeon RN is Primary Nurse. sf 01:38 Triage completed. sf 01:42 Arm band placed on right wrist. sf 01:42 Patient has correct armband on for positive identification. Placed in gown. Bed in low sf position. Call light in reach. Side rails up X 1. Pulse ox on. NIBP on. Door closed. Noise minimized. Visitors limited. Lights dimmed. Verbal reassurance given. 01:42 No provider procedures requiring assistance completed. sf 01:50 Initial lab(s) drawn, by de, sent to lab. Inserted saline lock: 20 gauge in right sf antecubital area, using aseptic technique. Blood collected. 01:50 Urine collected: clean catch specimen, clear, Amount Voided: 500mL. sf 02:22 CT Stone Protocol Sent. mw2 02:33 Basic Metabolic Panel Sent. sf 02:33 CBC with Diff Sent. sf 02:39 CT Stone Protocol In Process Unspecified. EDMS 04:56 IV discontinued, intact, bleeding controlled, No redness/swelling at site. Pressure sf dressing applied. Administered Medications: 02:00 Drug: morphine 4 mg Route: IVP; Site: right antecubital; sf 02:33 Follow up: Response: No adverse reaction; Pain is decreased sf 02:00 Drug: Zofran (Ondansetron) 2 mg Route: IVP; Site: right antecubital; sf 02:33 Follow up: Response: No adverse reaction sf 04:52 Drug: SOLU-Medrol 125 mg Route: IVP; Site: right antecubital; sf 04:57 Follow up: Response: Medication administered at discharge. sf Output: 04:52 Urine: 825ml (Voided); Total: 825ml. sf Outcome: 04:27 Discharge ordered by . rn 04:57 Discharged to home ambulatory. sf 04:57 Condition: stable 04:57 Discharge instructions given to patient, Instructed on discharge instructions, follow up and referral plans. medication usage, Demonstrated understanding of instructions, follow-up care, medications, Prescriptions given X 1. 05:00 Patient left the ED. sf Signatures: Dispatcher [employer] EDMS Juan Carlos Amaro MD MD rn [place], [employer] 2 Kael Krishnamurthy cl3 Lazaro Mckeon RN RN sf
--- NOTE | 2020-06-27 04:28 | EDPHYS ---
Physician Documentation [facility] Name: Ashish Clark Age: 45 yrs Sex: Male : 1975 Arrival Date: 06/27/2020 Time: 01:07 Bed 20 Private MD: ED Physician Juan Carlos Amaro HPI: 06/27 01:40 This 45 yrs old Male presents to ER via Wheelchair with complaints of Kidney rn Pain. 01:40 The patient complains of pain in the right mid back. The pain radiates to the abdomen. rn 01:41 Onset: The symptoms/episode began/occurred 4 day(s) ago. Modifying factors: The rn symptoms are alleviated by nothing. the symptoms are aggravated by nothing. Associated signs and symptoms: Pertinent negatives: diarrhea, dysuria, fever, headache, hematuria, vomiting. Severity of pain: At its worst the pain was moderate in the emergency department the pain is unchanged. The patient has experienced a previous episode. The patient has not recently seen a physician. Reports right kidney pain, no injury, no cough, no sob, radiates to right lower abdomen, no urinary symptoms. no hx of kidney stones. Also reports right knee pain, no injury, + mild swelling. + hx of gout but reports his gout attacks "hurt more than this". Mainly here for right kidney pain. No fever.. Historical: - Allergies: 01:39 No Known Allergies; sf - Home Meds: 01:39 lisinopril 20 mg Oral tab 1 tab once daily [Active]; sf - PMHx: 01:39 Hypertension; sf - PSHx: 01:39 None; sf - Immunization history:: Adult Immunizations up to date. - Social history:: Smoking status: Patient reports the use of cigarette tobacco products, smokes one-half pack cigarettes per day, Patient uses alcohol, weekly. Patient/guardian denies using street drugs, IV drugs. - Family history:: not pertinent. - Hospitalizations: : No recent hospitalization is reported. ROS: 01:41 Constitutional: Negative for fever, chills, and weight loss, Eyes: Negative for injury, rn pain, redness, and discharge, Neck: Negative for injury, pain, and swelling, Cardiovascular: Negative for chest pain, palpitations, and edema, Respiratory: Negative for shortness of breath, cough, wheezing, and pleuritic chest pain, Abdomen/GI: Negative for vomiting, diarrhea, and constipation, Back: + right flank pain : Negative for injury, bleeding, discharge, and swelling, MS/Extremity: + right knee pain Skin: Negative for injury, rash, and discoloration, Neuro: Negative for headache, weakness, numbness, tingling, and seizure. Exam: 01:41 Constitutional: This is a well developed, well nourished patient who is awake, alert, rn seems uncomfortable, holding right flank Head/Face: Normocephalic, atraumatic. Cardiovascular: Regular rate and rhythm. No pulse deficits. Respiratory: No increased work of breathing, no retractions or nasal flaring. Abdomen/GI: soft, non-tender, no masses Skin: Warm, dry, no cellulitis MS/ Extremity: Pulses equal, no cyanosis. Neurovascular intact. Mild pain with ROM right knee, no erythema/warmth/discoloration of right knee. Neuro: Awake and alert, GCS 15 Vital Signs: 01:35 BP 152 / 109; Pulse 94; Resp 20; Temp 97.7; Pulse Ox 96% ; Weight 99.79 kg; Height 6 sf ft. 1 in. (185.42 cm); Pain 7/10; 02:00 BP 129 / 91; Pulse 92; Resp 20; Pulse Ox 100% ; sf 02:32 Pain 3/10; sf 02:34 BP 142 / 69; Pulse 89; Resp 16; Pulse Ox 99% ; sf 03:00 BP 137 / 94; Pulse 92; Resp 16; Pulse Ox 99% ; sf 03:30 BP 137 / 100; Pulse 89; Resp 16; Pulse Ox 100% ; sf 03:59 Pain 4/10; sf 04:51 BP 138 / 94; Pulse 90; Resp 16; Pulse Ox 100% ; sf 01:35 Body Mass Index 29.03 (99.79 kg, 185.42 cm) sf MDM: 01:26 Patient medically screened. rn 04:26 Differential diagnosis: nephrolithiasis, pyelonephritis, UTI, pancreatitis. Data rn reviewed: vital signs, nurses notes, lab test result(s), radiologic studies, CT scan, and as a result, I will discharge patient. Counseling: I had a detailed discussion with the patient and/or guardian regarding: the historical points, exam findings, and any diagnostic results supporting the discharge/admit diagnosis, lab results, radiology results, the need for outpatient follow up, to return to the emergency department if symptoms worsen or persist or if there are any questions or concerns that arise at home. Response to treatment: the patient's symptoms have mildly improved after treatment, and as a result, I will discharge patient. Special discussion: I discussed with the patient/guardian in detail that at this point there is no indication for admission to the hospital. It is understood, however, that if the symptoms persist or worsen the patient needs to return immediately for re-evaluation. ED course: No acute findings in blood/urine/ct abdomen, unclear etiology, given radiates down right leg, will try steroids and give return precautions. . 06/27 01:31 Order name: Basic Metabolic Panel rn 06/27 01:31 Order name: CBC with Diff rn 06/27 01:31 Order name: Hepatic Function; Complete Time: 04:20 rn 06/27 01:31 Order name: Lipase; Complete Time: 04:20 rn 06/27 01:31 Order name: Urine Microscopic Only; Complete Time: 04:20 rn 06/27 01:32 Order name: Basic Metabolic Panel; Complete Time: 04:20 EDMS 06/27 01:31 Order name: IV Saline Lock; Complete Time: 01:53 rn 06/27 01:31 Order name: Labs collected and sent; Complete Time: 01:53 rn 06/27 01:31 Order name: CT Stone Protocol rn 06/27 01:32 Order name: CBC with Automated Diff; Complete Time: 04:20 EDMS 06/27 02:00 Order name: Urine Dipstick--Ancillary (enter results); Complete Time: 04:20 mw2 06/27 01:31 Order name: Urine Dipstick-Ancillary (obtain specimen); Complete Time: 01:53 rn Administered Medications: 02:00 Drug: morphine 4 mg Route: IVP; Site: right antecubital; sf 02:33 Follow up: Response: No adverse reaction; Pain is decreased sf 02:00 Drug: Zofran (Ondansetron) 2 mg Route: IVP; Site: right antecubital; sf 02:33 Follow up: Response: No adverse reaction sf 04:52 Drug: SOLU-Medrol 125 mg Route: IVP; Site: right antecubital; sf 04:57 Follow up: Response: Medication administered at discharge. sf Disposition: 06/27/20 04:27 Discharged to Home. Impression: Flank Pain. - Condition is Stable. - Discharge Instructions: Flank Pain, Adult. - Prescriptions for Medrol (David) 4 mg Oral Tablets, Dose Pack - take 1 tablet by ORAL route as directed - follow package instructions; 1 packet. - Medication Reconciliation Form, Thank You Letter, Antibiotic Education, Prescription Opioid Use form. - Follow up: Private Physician; When: As needed; Reason: Recheck today's complaints, Re-evaluation by your physician. - Problem is new. - Symptoms have improved. Signatures: Dispatcher [employer] EDMS Juan Carlos Amaro MD MD rn Fitzpatrick, Steven, RN RN sf Corrections: (The following items were deleted from the chart) 05:00 04:27 06/27/2020 04:27 Discharged to Home. Impression: Flank Pain. Condition is Stable. sf Forms are Medication Reconciliation Form, Thank You Letter, Antibiotic Education, Prescription Opioid Use. Follow up: Private Physician; When: As needed; Reason: Recheck today's complaints, Re-evaluation by your physician. Problem is new. Symptoms have improved. rn
[2020-06-27 05:05] VITALS: TEMP 97.7
[2020-06-27] MEDS ORDERED: METHYLPREDNISOLONE 125 MG INJ ONE (05:07)
[2020-06-27 05:10] VITALS: O2SAT 100
[2020-06-27 05:13] VITALS: BP 138/94
--- NOTE | 2020-06-27 19:32 | RAD REPORT ---
EXAM DESCRIPTION: CT Abdomen and Pelvis Without Intravenous Contrast CLINICAL HISTORY: The patient is 45 years old and is Male; right flank pain TECHNIQUE: Axial computed tomography images of the abdomen and pelvis without intravenous contrast. Sagittal and coronal reformatted images were created and reviewed. This CT exam was performed usi ng one or more of the following dose reduction techniques: automated exposure control, adjustment o f the mA and/or kV according to patient size, and/or use of iterative reconstruction technique. COMPARISON: No relevant prior studies available. FINDINGS: Lung bases: Unremarkable. No mass. No consolidation. ABDOMEN: Liver: Unremarkable. Gallbladder and bile ducts: Unremarkable. No calcified stones. No ductal dilation. Pancreas: Unremarkable. No ductal dilation. Spleen: Unremarkable. No splenomegaly. Adrenals: Unremarkable. No mass. Kidneys and ureters: Unremarkable. No obstructing stones. No hydronephrosis. Stomach and bowel: Unremarkable. No obstruction. No mucosal thickening. PELVIS: Appendix: The appendix is normal. Bladder: Unremarkable. No stones. Reproductive: Unremarkable as visualized. ABDOMEN and PELVIS: Intraperitoneal space: Unremarkable. No free air. No significant fluid collection. Bones/joints: No acute fracture. No dislocation. Mild retrolisthesis of L5 on S1. Soft tissues: Unremarkable. Vasculature: Unremarkable. No abdominal aortic aneurysm. Lymph nodes: Unremarkable. No enlarged lymph nodes. IMPRESSION: No acute findings in the abdomen or pelvis. Electronically signed by: Carlos Lux MD 06/27/2020 3:29 AM [employer] Due to temporary technical issues with the PACS/Fluency reporting system, reports are being signed by the in house radiologists without review as a courtesy to insure prompt reporting. The interpreting radiologist is fully responsible for the content of the report.
== END 2020-06-27 05:00 | disposition home or self-care (01) ==
LOC: ER 01:06
DX: R10.9 Unspecified abdominal pain (principal); I10 Essential (primary) hypertension; F17.210 Nicotine dependence, cigarettes, uncomplicated
CPT/HCPCS: 36415; 74176; 76377; 80048; 80076; 81003; 81015; 83690; 85025; 96374; 96375; 99284; J2405; J2930

== ENCOUNTER 2021-07-23 00:47 | Emergency (ER) | payer SELFPAY ==
--- NOTE | 2021-07-23 01:31 | ER ---
Nurse's Notes [facility] Name: Ashish Clark Age: 46 yrs Sex: Male : 1975 Arrival Date: 07/23/2021 Time: 00:48 Bed 14 Private MD: Diagnosis: syncope Presentation: 07/23 00:49 Chief complaint: EMS states: pt was outside walking with his and had a syncopal sm5 episode lasting 3 mins per . pt a+ox3 for ems on scene. pt states he has a hx os seizures but has never been diagnosed, denies seeing seizure like activity. pt complaining of R sided back/flank pain x3days. Coronavirus screen: Vaccine status: Patient reports being unvaccinated. Ebola Screen: No symptoms or risks identified at this time. Initial Sepsis Screen: Does the patient meet any 2 criteria? HR > 90 bpm. No. Patient's initial sepsis screen is negative. Does the patient have a suspected source of infection? No. Patient's initial sepsis screen is negative. Initial Sepsis Screen: Does the patient meet any 2 criteria?. Risk Assessment: Do you want to hurt yourself or someone else? Patient reports no desire to harm self or others. Onset of symptoms. 00:49 Method Of Arrival: EMS: [facility]5 00:49 Acuity: JOSELINE 3 sm5 Triage Assessment: 00:53 General: Appears in no apparent distress. Behavior is cooperative. Pain: Complains of sm5 pain in back. Neuro: No deficits noted. Level of Consciousness is awake, alert, obeys commands, Oriented to person, place, time, situation. Cardiovascular: No deficits noted. Capillary refill < 3 seconds Patient's skin is warm and dry. Respiratory: No deficits noted. Airway is patent Trachea midline Respiratory effort is even, unlabored. Historical: - Allergies: 00:52 No Known Allergies; sm5 - Home Meds: 00:52 lisinopril 20 mg Oral tab 1 tab once daily [Active]; sm5 - PMHx: 00:52 Hypertension; sm5 - Immunization history:: Client reports having NOT received the Covid vaccine. Flu vaccine is not up to date. - Social history:: Smoking status: Patient reports the use of cigarette tobacco products, smokes one-half pack cigarettes per day, Patient uses alcohol, 3x's a week. Screenin:53 Abuse screen: Denies threats or abuse. Denies injuries from another. Nutritional sm5 screening: No deficits noted. Tuberculosis screening: No symptoms or risk factors identified. Fall Risk None identified. Assessment: 01:15 Reassessment: pt refusing IV and blood work at this time. asking to speak to pt sm5 alone and to give them time to decide on plan of action. 01:27 Reassessment: see triage assessment. 5 01:29 Reassessment: pt unhooked himself from monitor and started walking out of room. Asked sm5 pt if he was leaving and he said yes. provider made aware. Vital Signs: 00:49 BP 159 / 112; Pulse 123; Resp 16; Temp 97.6(O); Pulse Ox 98% on R/A; Weight 97.52 kg; sm5 Height 6 ft. 1 in. (185.42 cm); Pain 5/10; 01:26 BP 174 / 120; Pulse 86; Resp 17; Pulse Ox 98% on R/A; sm5 00:49 Body Mass Index 28.37 (97.52 kg, 185.42 cm) 5 ED Course: 00:48 Patient arrived in ED. ms3 00:48 Vince Eller DO is Attending Physician. ms3 00:52 Triage completed. sm5 00:53 Arm band placed on right wrist. sm5 00:54 Patient has correct armband on for positive identification. Bed in low position. Call 5 light in reach. Side rails up X2. 00:56 Pao Hathaway, YONY is Primary Nurse. 5 01:30 Carlos Jett MD is Referral Physician. ms3 01:30 No provider procedures requiring assistance completed. Patient did not have IV access 5 during this emergency room visit. Administered Medications: No medications were administered Outcome: 01:30 Discharge ordered by . ms3 01:34 Discharged to home ambulatory. sm5 01:34 Condition: stable 01:34 Discharge instructions given to patient, Instructed on discharge instructions, follow up and referral plans. Demonstrated understanding of instructions, follow-up care. 01:34 Patient left the ED. 5 Signatures: Vince Eller DO DO ms3 Pao Hathaway, YONY RN 5
--- NOTE | 2021-07-23 01:31 | EDPHYS ---
Physician Documentation [facility] Name: Ashish Clark Age: 46 yrs Sex: Male : 1975 Arrival Date: 07/23/2021 Time: 00:48 Bed 14 Private MD: ED Physician Vince Eller HPI: 07/23 01:30 This 46 yrs old Male presents to ER via EMS with complaints of syncope. ms3 01:30 The patient has experienced syncope, lost consciousness. Onset: The symptoms/episode ms3 began/occurred acutely, just prior to arrival. Duration: This was a single episode, that lasted 3 minute(s). Context: the episode(s) was witnessed, by a significant other, girlfriend. Associated injury: The patient did not suffer any apparent associated injury. Associated signs and symptoms: Pertinent positives: shortness of breath, Pertinent negatives: abdominal pain, nausea, vomiting. 46-year-old male with past medical history of hypertension presents via [facility] after having a sensation of being thirsty, developing shortness of breath and syncopized. Patient states his girlfriend states he was unconscious for approximately 3 minutes. EMS states girlfriend stated patient was not shaking. Patient states he had 1 beer approximately 4 hours prior to arrival. Patient states this is occurred 1 time prior. Patient denies pain.. Historical: - Allergies: 00:52 No Known Allergies; sm5 - Home Meds: 00:52 lisinopril 20 mg Oral tab 1 tab once daily [Active]; sm5 - PMHx: 00:52 Hypertension; sm5 - Immunization history:: Client reports having NOT received the Covid vaccine. Flu vaccine is not up to date. - Social history:: Smoking status: Patient reports the use of cigarette tobacco products, smokes one-half pack cigarettes per day, Patient uses alcohol, 3x's a week. ROS: 01:30 Constitutional: Negative for fever, and chills. ENT: Negative for injury, pain, and ms3 discharge, Neck: Negative for injury, pain, and swelling, Cardiovascular: Negative for chest pain, and palpitations. Respiratory: Negative for shortness of breath, cough, wheezing, and pleuritic chest pain, Abdomen/GI: Negative for abdominal pain, nausea, vomiting, diarrhea, and constipation, Back: Negative for injury and pain, MS/Extremity: Negative for injury and deformity, Skin: Negative for injury, rash, and discoloration. 01:30 Neuro: Positive for syncope. 01:30 All other systems are negative. Exam: 01:30 Constitutional: This is a well developed, well nourished patient who is awake, alert, ms3 and in no acute distress. Head/Face: Normocephalic, atraumatic. Chest/axilla: Normal chest wall appearance and motion. Nontender with no deformity. Cardiovascular: Regular rate and rhythm with a normal S1 and S2. No gallops, murmurs, or rubs. Normal PMI, no JVD. No pulse deficits. Respiratory: Lungs have equal breath sounds bilaterally, clear to auscultation and percussion. No rales, rhonchi or wheezes noted. No increased work of breathing, no retractions or nasal flaring. Abdomen/GI: Soft, non-tender, with normal bowel sounds. No distension or tympany. No guarding or rebound. No evidence of tenderness throughout. Skin: Warm, dry with normal turgor. Normal color with no rashes, no lesions, and no evidence of cellulitis. MS/ Extremity: Pulses equal, no cyanosis. Neurovascular intact. Full, normal range of motion. Neuro: Awake and alert, GCS 15, oriented to person, place, time, and situation. Cranial nerves II-XII grossly intact. Motor strength 5/5 in all extremities. Sensory grossly intact. Cerebellar exam normal. Normal gait. Psych: Awake, alert, with orientation to person, place and time. Behavior, mood, and affect are within normal limits. Vital Signs: 00:49 BP 159 / 112; Pulse 123; Resp 16; Temp 97.6(O); Pulse Ox 98% on R/A; Weight 97.52 kg; 5 Height 6 ft. 1 in. (185.42 cm); Pain 5/10; 01:26 BP 174 / 120; Pulse 86; Resp 17; Pulse Ox 98% on R/A; sm5 00:49 Body Mass Index 28.37 (97.52 kg, 185.42 cm) [facility] MDM: 00:48 Patient medically screened. ms3 01:30 Differential Diagnosis: cardiac arrhythmia, idiopathic syncope, vasovagal episode. Data ms3 reviewed: vital signs, nurses notes, EKG. Counseling: I had a detailed discussion with the patient and/or guardian regarding: the historical points, exam findings, and any diagnostic results supporting the discharge/admit diagnosis, the need for outpatient follow up, to return to the emergency department if symptoms worsen or persist or if there are any questions or concerns that arise at home. Refusal of service: The patient/guardian displays adequate decision making capability and despite a detailed discussion of alternatives, benefits, risks, and consequences refuses: all lab tests, all X-rays. ED course: Patient states he does not wish to have IV placed, labs drawn, or any additional work-up. Patient states he would like to be discharged. Discussed with patient risks of disability or . Patient understands and accepts risk. Patient to follow-up with primary care physician in 1 to 2 days. Patient understands agrees with plan. All questions were answered. Return precautions discussed include worsening symptoms, or any other concerns. On reevaluation patient was alert and oriented x4, no apparent distress, nontoxic, ambulatory in the emergency department with steady gait. Patient informed he may return at any time to continue his treatment.. 07/23 01:14 Order name: EKG; Complete Time: 01:14 ms3 07/23 01:14 Order name: Cardiac monitoring; Complete Time: ms3 07/23 01:14 Order name: EKG - Nurse/Tech; Complete Time: ms3 07/23 01:14 Order name: IV Saline Lock ms3 07/23 01:14 Order name: Labs collected and sent ms3 07/23 01:14 Order name: O2 Per Protocol; Complete Time: ms3 07/23 01:14 Order name: O2 Sat Monitoring; Complete Time: EC:16 Rate is 92 beats/min. Rhythm is regular. QRS [place] is Normal. Clinical impression: ms3 Normal ECG. Interpreted by me. Administered Medications: No medications were administered Disposition Summary: 07/23/21 01:30 Discharge Ordered Location: Home ms3 Condition: Stable ms3 Diagnosis - syncope ms3 Followup: ms3 - With: Carlos Jett MD - When: 1 - 2 days - Reason: Re-evaluation by your physician Discharge Instructions: - Discharge Summary Sheet ms3 - Syncope ms3 Forms: - Medication Reconciliation Form ms3 - Thank You Letter ms3 - Antibiotic Education ms3 - Prescription Opioid Use ms3 Signatures: Dispatcher [employer] EDMS Vince Eller, DO ms3 Pao Hathaway, RN RN sm5
--- NOTE | 2021-07-23 07:45 | EKG ---
Test Date: 2021-07-23 Test Time: 00:55:29 Gravel Inspector: SIDDHARTHA MEASUREMENT RESULTS: Intervals: Rate: 92 NH: 158 QRSD: 92 QT: 356 QTc: 440 [place]: P: 74 NH: 158 QRS: 22 T: 58 INTERPRETIVE STATEMENTS: Normal sinus rhythm Normal ECG Compared to ECG 04/29/2020 23:36:46 Atrial premature complex(es) no longer present Myocardial infarct finding no longer present Electronically Signed On 07-23-21 07:44:40 CDT by Pollo Arita
[2021-07-23 11:10] VITALS: TEMP 97.6; O2SAT 98
[2021-07-23 11:11] VITALS: BP 174/120
== END 2021-07-23 01:34 | disposition home or self-care (01) ==
LOC: ER 00:47
DX: R55 Syncope and collapse (principal); I10 Essential (primary) hypertension; F17.210 Nicotine dependence, cigarettes, uncomplicated
CPT/HCPCS: 93005; 99283